=== PATIENT | female | born 1975 | race Caucasian/White ===

== ENCOUNTER 2019-08-31 16:37 | Outpatient (CLI) | payer OTHER, SELFPAY ==
[2019-08-31 16:55] LABS: Basophils Absolute Auto 0.04 K/mm3 (0.00-0.10); Basophils Percent Auto 0.5 % (0.0-1.0); Eosinophils Absolute Auto 0.03 K/mm3 (0.02-0.50); Eosinophils Percent Auto 0.3 % (1.0-6.0); Hematocrit 40.9 % (35.0-49.0); Hemoglobin 13.5 g/dL (12.0-15.0); Immature Granulocyte Absolute 0.02 K/mm3 (0.00-0.00); Immature Granulocyte Percent A 0.2 % (0.0-0.0); Lymphocytes Absolute Auto 3.19 K/mm3 (1.10-4.50); Lymphocytes Percent Auto 36.1 % (18.0-42.0); Mean Corpuscular Hemoglobin 27.3 pg (27.0-31.0); Mean Corpuscular Volume 82.8 fL (78.0-102.0); Mean Platelet Volume 9.4 fl (9.2-11.8); Monocytes Absolute Auto 0.55 K/mm3 (0.10-0.90); Monocytes Percent Auto 6.2 % (2.0-11.0); Neutrophils Percent Auto 56.7 % (50.0-70.0); Platelet Count Result 311 K/mm3 (150-420); Red Blood Count 4.94 M/mm3 (4.20-5.40); Red Cell Distribution Width 13.8 % (11.6-14.4); White Blood Count 8.8 K/mm3 (4.8-10.8)
[2019-08-31 16:59] LABS: Appearance Urine Clear (Clear); Bilirubin Urine Negative (Negative); Color Urine Yellow (Yellow); Glucose Urine UA Negative (Negative); Ketones Urine Negative (Negative); Leukocyte Esterase Ur 1+ (Negative); Nitrate Urine Negative (Negative); Protein Urine Negative (Negative); Urobilinogen Urine 0.2 mg/dL (0.2-1.0)
[2019-08-31 17:11] LABS: Add Urine Microscopic? YES; Bacteria Urine Trace /hpf; Blood Urine Trace (Negative); Mucus Urine Rare /lpf; Squamous Epithelial Cell Urine Few /hpf (Few)
[2019-08-31 17:23] LABS: Alanine Aminotransferase 24 U/L (14-59); Albumin Level 4.1 g/dL (3.4-5.0); Alkaline Phosphatase 73 U/L (46-116); Amylase 30 U/L (25-115); Anion Gap 14.1 mmol/L (7-16); Aspartate Amino Transferase 22 U/L (15-37); Bilirubin,Total 0.3 mg/dL (0.00-1.00); Blood Urea Nitrogen 16 mg/dL (7-18); Calcium 8.9 mg/dL (8.5-10.1); Carbon Dioxide 28 mmol/L (21-32); Chloride 102 mmol/L (98-108); Estimated Glomerular Filt Rate > 60; Glucose 91 mg/dL (70-99); Lipase 92 U/L (73-393); Osmolality Calculated 291 mOsm/kg (285-295); Potassium 4.1 mmol/L (3.5-5.1); Sodium 140 mmol/L (136-145); Total Protein 9.6 g/dL (6.4-8.2)
== END 2019-08-31 16:38 | disposition home or self-care (01) ==
LOC: CHSLAB 16:40
PROVIDERS: PCP Family Medicine; Visit Provider Family Medicine
DX: R19.7 Diarrhea, unspecified (principal); R10.13 Epigastric pain
CPT/HCPCS: 36415; 80053; 81001; 82150; 83690; 85025

== ENCOUNTER 2019-10-27 14:49 | Outpatient (CLI) | payer OTHER, SELFPAY ==
--- NOTE | ~2019-10-27 | XR_ITS ---
XR foot LT min 3V 10/27/2019 15:13 Indication: Left foot pain, bruising and swelling Procedure: 4 views left foot Comparison: Comparison to multiple prior studies sequentially, with oldest reviewed study dated 08/2015. Findings: There is moderate osteoarthritis of the midfoot. There are degenerative calcaneal enthesoph ytes. There are degenerative changes of the tibiotalar joint. No acute fracture or traumatic malalign ment. No focal soft tissue abnormality. No foreign bodies. No erosive changes. Impression: 1: Moderate osteoarthritis of the left midfoot, most advanced at the talonavicular joint. 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 Impression: 1: Moderate osteoarthritis of the left midfoot, most advanced at the talonavicu lar joint.
== END 2019-10-27 14:50 | disposition home or self-care (01) ==
LOC: CHSIMG 14:51
PROVIDERS: PCP Family Medicine; Visit Provider Family Medicine
DX: M79.672 Pain in left foot (principal)
CPT/HCPCS: 73630

== ENCOUNTER 2019-12-20 00:42 | Outpatient (CLI) | payer OTHER, SELFPAY ==
[2019-12-20 18:39] LABS: SARS-CoV-2 RNA PCR Negative
== END 2019-12-20 00:43 | disposition home or self-care (01) ==
LOC: ANHCOVIDDT 00:42
PROVIDERS: PCP Family Medicine; Visit Provider Student in an Organized Health Care Education/Training Program
DX: Z01.812 Encounter for preprocedural laboratory examination (principal); Z20.828 Contact with and (suspected) exposure to other viral communicable diseases
CPT/HCPCS: 87635; C9803; U0003

== ENCOUNTER 2019-12-20 08:29 | Outpatient (CLI) | payer OTHER, SELFPAY ==
[2019-12-20 09:04] LABS: Hematocrit 32.4 % (37.0-47.0); Hemoglobin 10.6 g/dL (12.0-15.0); Mean Corpuscular HGB Conc 32.7 g/dl (32-36); Mean Corpuscular Hemoglobin 28.3 pg (26-34); Mean Corpuscular Volume 86.4 fl (80-100); Mean Platelet Volume 9.8 fl (7.4-10.4); Platelet Count Result 244 k/mm3 (150-375); Red Blood Count 3.75 M/mm3 (4.2-5.4); Red Cell Distribution Width 13.5 % (11.5-14.5); White Blood Count 7.3 K/mm3 (4.5-10.0)
== END 2019-12-20 08:30 | disposition home or self-care (01) ==
PROVIDERS: PCP Family Medicine; Visit Provider Student in an Organized Health Care Education/Training Program
DX: R10.2 Pelvic and perineal pain (principal)
CPT/HCPCS: 36415; 85027; 86850; 86900; 86901

== ENCOUNTER 2019-12-22 16:32 | Observation (INO) | payer OTHER, SELFPAY ==
[2019-08-04 12:40] VITALS: BMI 48.1
[2019-12-15 15:07] VITALS: BMI 49.6
[2019-12-22] VITALS (16 sets, daily range): BP systolic 110–145; BP diastolic 58–90; PULSE 58–90; RESP 12–20; TEMP 36.3–36.7; O2SAT 93–100
--- NOTE | 2019-12-22 07:43 | PM.IMHP ---
H&P: HPI History of Present Illness Chief complaint: Excessive bleeding, pelvic pain Narrative: Deanna Cardoza is a 44 year old female who presents with AUB and pelvic pain. Pt reports irregular bleeding for the past year or so. She reports heavy menses with passing of large clots. She also reports a 9 out of 10 pain during her menses. pt has undergone hysteroscopy and D&C in the past without improvement of her symptoms. Pt has pelvic US after presenting to the hospital for pain on 07/15/19. US showed a [id number] uterus with 7mm endometrial stripe. pt requested definitive management of her bleeding and pain via hysterectomy. Review of Systems Cardiovascular: Cardiovascular: Denies chest pain, Denies leg edema, Denies palpitations, Denies dyspnea and Denies dyspnea on exertion Respiratory: Respiratory: Denies cough, Denies dyspnea and Denies dyspnea on exertion Gastrointestinal: Gastrointestinal: Denies abdominal pain, Denies constipation, Denies diarrhea, Denies nausea and Denies vomiting Genitourinary: Genitourinary: Denies hematuria, Denies urinary frequency, Denies dysuria, Denies pelvic pain, Denies urinary incontinence and Denies vaginal discharge Neurologic: Reports system reviewed and no additional complaints, except as documented Psychiatric: Psychiatric: Reports no additional psychiatric complaints Endocrine: Endocrine: Denies palpitations PMFSH Past Medical History Medical History (Updated 12/22/19 @ 07:47 by Jordin Haley MD) Chronic low back pain Meds Home Medications and Allergies Home Medications Medication Instructions Recorded Confirmed Type fentanyl 1 patch TRANSDERMAL Q72H 05/29/19 12/15/19 History hydrocodone-acetaminophen [[place]] 1 tablet PO Q4-6H PRN 05/29/19 12/15/19 History carisoprodol 350 mg PO TID 08/04/19 12/15/19 History gabapentin 600 mg PO TID 08/04/19 12/15/19 History ibuprofen 800 mg PO TID PRN 12/15/19 12/15/19 History Allergies Allergy/AdvReac Type Severity Reaction Status Date / Time No Known Allergies Allergy Mild Unverified 12/15/19 14:55 Exam Const: General: no acute distress Eyes: EOM: EOMs intact bilaterally Neck: Neck: supple Thyroid: thyroid normal Chest: Breast/axilla inspection: normal inspection of the breasts Breast/axilla palpation: normal palpation of the breasts, normal palpation of the axillae and no axillary lymphadenopathy Resp: Effort & Inspection: normal respiratory effort Auscultation: clear to auscultation bilaterally Cardio: Rate: regular rate Rhythm: regular rhythm GI: Inspection: non-distended GI Palp: Yes Soft to palpation, No Tenderness to palpation present (GI) and No Guarding due to palpation present (GI) Auscultation: normal bowel sounds : General: No bladder normal to palpation External Female Exam: normal external appearance Speculum Exam - Vagina: normal vaginal discharge and No vaginal bleeding Speculum Exam - Cervix: nontender Bimanual exam- vagina & uterus: No bladder normal to palpation and No Cervical tenderness present OB/external & speculum: No vaginal bleeding Skin: General skin exam: normal color and no rashes or lesions noted Neuro: Cognition (Neuro): normal cognition Speech: normal speech Extrem: General: normal to inspection and no edema Psych: Mental Status: mental status grossly normal Affect: normal affect Assessment and Plan Assessment and plan (1) Abnormal uterine bleeding (AUB): Code(s): N93.9 - Abnormal uterine and vaginal bleeding, unspecified Status: Acute Assessment and Plan: pt with over a year of AUB non responsive to D&C US shows 8x4x6 cm uterus with 7mm stripe EMB scant cervical tissue pt desires definitive managment via hysterectomy plan for robotic TLH/BS (2) Pelvic pain: Code(s): R10.2 - Pelvic and perineal pain Status: Acute
[2019-12-22] MEDS: LACTATED RINGERS 1,000 ML 30 ML IV CONT ×3 (10:45→15:17)
--- NOTE | 2019-12-22 10:49 | WPDANESEPPF ---
Anes - Initial Pre Proc Eval Procedure: Operation Date: 12/22/19 12:00 Proposed Procedures p Robotic Assisted Total Vaginal Hysterectomy, Bilateral Salpingectomy - Jordin Haley MD Date/Time: 12/22/19 10:49 Surgeon: Jordin Haley MD Pre Op Diagnosis: Excessive bleeding, pelvic pain Patient Data Age: 44 Gender: F Height: 5 ft 5 in Weight: 135.17 kg Allergies Allergy/AdvReac Type Severity Reaction Status Date / Time No Known Allergies Allergy Mild Unverified 12/22/19 10:33 Home Medications Medication Instructions Recorded Confirmed Type fentanyl 1 patch TRANSDERMAL Q72H 05/29/19 12/22/19 History hydrocodone-acetaminophen [[place]] 1 tablet PO Q4-6H PRN 05/29/19 12/22/19 History carisoprodol 350 mg PO TID 08/04/19 12/22/19 History gabapentin 600 mg PO TID 08/04/19 12/22/19 History ibuprofen 800 mg PO TID PRN 12/15/19 12/22/19 History Patient hx anesthesia problems: none Family hx anesthesia problems: none [facility] Past Medical History Medical History Chronic low back pain Anes - Eval Final PreProcedure Day of Procedure 12/22/19 10:49 Patient weight: morbidly obese Heart: regular rate and rhythm Lungs: clear to auscultation Airway: Mallampati scale class II Neurological: alert and oriented Last oral intake: >/= 8 hours ASA classification: III Emergent: no Anesthetic plan: proceed Anesthesia type and monitoring: general ETT and standard monitoring Informed Consent: The patient's anesthetic plan and its attendant risks and benefits were discussed with the patient/family/POA. Questions were solicited and answers provided to the satisfaction of the patient/family/POA.
[2019-12-22] MEDS: SCOPOLAMINE 1.5 MG PATCH TRANSDERM (11:55)
[2019-12-22] MEDS: ceFAZolin 3 GM/D5W 100 ML 100 ML IVPB (12:25)
[2019-12-22] MEDS: LIDO 1%/EPINEPHRINE 1:100,000 20 ML VIAL 30 ML INFILTRATE (13:32)
--- NOTE | 2019-12-22 14:58 | PM.PROC ---
Procedure Note - Detailed Date of procedure: 12/22/19 Pre-op diagnosis: Excessive bleeding, pelvic pain Post-op diagnosis: same Procedure performed: Robotic assisted total laparoscopic hysterectomy bilateral salpingectomy lysis of adhesions (30 min) Description of procedure: PROCEDURE IN DETAIL: After the patient was appropriately consented she was taken to the operating room where she was transferred to the table in a dorsal supine position. General anesthesia was then induced with endotracheal intubation. The patient was transferred to a dorsal lithotomy position using adjustable yellow-fin stirrups. Her position was adjusted for appropriate support of her lower back and lower extremities. The patient was prepped and draped. A transurethral carrion catheter was place. The cervix was sequentially dilated and a FITZ uterine manipulator placed in typical fashion about a 3.5 cm GIORGIO ring. Gloves were changed. After confirmation of a functioning orogastric tube, lidocaine was injected at Thompson's point in the LUQ and a 5mm incision was made. A 5mm Optiview trocar was then inserted into the abdominal cavity under direct visualization and done so without complication. The abdomen was then insufflated with approximately 2-3L of CO2 establishing a pneumoperitoneum and the patient was placed in Trendelenburg position. Just above the umbilicus in the midline, a 10mm incision made after injection of lidocaine and a 8mm bladeless trocar advanced into the abdominal cavity under direct visualization without incident. We subsequently placed two robotic ports in a similar fashion, one in the left mid-quadrant and one in the right, 10cm lateral to the midline port. On examination of the pelvis, there was a large amount of midline omental adhesions to the anterior abdominal wall. These adhesions were taken down sharply with laparoscopic scissors. The extent of lysis of adhesions lasted 30 min. The robot was then docked. The Left fallopian tube was identified out to the fimbrae. The fallopian tube was then coagulated and ligated along the inferior mesosalpinx toward the uterus. The utero-ovarian ligament was identified and ligated. The Left round ligament was divided and the posterior aspect of the broad ligament was then skeletonized down to the level of the internal cervical os, mobilizing the ureter laterally. The bladder flap was then created sharply. The ipsilateral uterine artery was skeletonized, bipolar cauterized and transected. A similar procedure was performed on the contralateral side, developing the pelvic spaces, coagulating and dividing the IP away from the ureter, completing the bladder flap, and skeletonizing, ligating, and dividing the uterine artery on this side. We ensured the vaginal pneumo-occluder balloon was insufflated and made a circumferential colpotomy using monopolar current. The uterus, cervix, and bilateral tubes were then delivered transvaginally. I then re-approximated the colpotomy with a single interuppted 0-vicryl at the left apex and running #1 PDO barbed suture in 2 layers. Following this dissection, the abdomen and pelvis were copiously irrigated and all surgical sites found to be hemostatic. Skin sites were reapproximated with 4-0 Vicryl in a subcuticular fashion. Steri-Strips were placed. The patient tolerated the procedure well. Sponge, needle and instrument counts were correct x 2 and the patient was taken to recovery in stable condition. Ancef was given for antimicrobial prophylaxis. The patient had SCD's on for VTE prophylaxis during the entire procedure. Anesthesia: GETA Surgeon: Jordin Haley MD Estimated blood loss (mL): 150 IV fluids (mL): 1,600 Urine output (mL): 50 Drains: No Packing: No Pathology: yes (uterus, cervix, bilateral fallopian tubes, bilateral ovaries ) Complications: No immediate complications Condition: stable Disposition: PACU Findings: midline omental adhesions to the anterior abdominal wall.
[2019-12-22] MEDS: HYDROMORPHONE HCL 1 MG/ML INJ IV PUSH ×5 (15:00→15:34)
--- NOTE | 2019-12-22 15:34 | SUR.PHASEI ---
1525 - family updated on pt's status
--- NOTE | 2019-12-22 15:57 | SUR.PHASEI ---
1557 - dr. honeycutt notified of need to call pt's and for possible stronger pain medication when on floor
[2019-12-22] MEDS: MEPERIDINE HCL INJ 50 MG/ML AMPUL IV PUSH (16:36)
--- NOTE | 2019-12-22 16:37 | PC.NURSE ---
This patient, Deanna Cardoza, was received from PACU per bed to room 289. Patient/family oriented to unit policies and routines
--- NOTE | 2019-12-22 16:39 | SUR.PHASEI ---
1546 - dr. moses called and orders received for pain control
[2019-12-22] MEDS: DEXTROSE 5%/LACTATED RINGERS 1,000 ML 125 ML IV CONT (17:11)
[2019-12-22] MEDS: MORPHINE SULFATE 2 MG/ML INJ IV PUSH ×2 (17:27→21:38)
[2019-12-22] MEDS: KETOROLAC 30 MG/ML VIAL (*BKC) IV PUSH (19:11)
[2019-12-22] MEDS: GABAPENTIN 300 MG CAPSULE 600 MG PO (21:38)
[2019-12-23] VITALS: BP 129/56; PULSE 102; RESP 16; TEMP 37.2; O2SAT 98
[2019-12-23] MEDS: KETOROLAC 30 MG/ML VIAL (*BKC) IV PUSH (00:27)
[2019-12-23] MEDS: SIMETHICONE 80 MG TAB.CHEW PO (00:30)
[2019-12-23 04:00] VITALS: BP 106/50; PULSE 92; RESP 16; TEMP 37.8; O2SAT 98
[2019-12-23 05:32] LABS: Basophils Percent Auto 0.2 % (0.2-1.2); Hematocrit 31.5 % (37.0-47.0); Hemoglobin 10.2 g/dL (12.0-15.0); Immature Granulocyte Absolute 0.03 K/mm3 (0.00-0.031); Immature Granulocyte Percent A 0.3 % (0-0.5); Lymphocytes Percent Auto 25.6 % (18.3-44.2); Mean Corpuscular HGB Conc 32.4 g/dl (32-36); Mean Corpuscular Hemoglobin 27.8 pg (26-34); Mean Corpuscular Volume 85.8 fl (80-100); Mean Platelet Volume 10.1 fl (7.4-10.4); Monocytes Absolute Auto 0.7 K/mm3 (0.1-0.6); Monocytes Percent Auto 6.5 % (2.6-8.5); Neutrophils Absolute Auto 6.8 K/mm3 (1.3-6.7); Neutrophils Percent Auto 67.4 % (45.5-73.1); Platelet Count Result 246 k/mm3 (150-375); Red Blood Count 3.67 M/mm3 (4.2-5.4); Red Cell Distribution Width 13.2 % (11.5-14.5); White Blood Count 10.1 K/mm3 (4.5-10.0)
[2019-12-23 05:47] LABS: Blood Urea Nitrogen 9 mg/dL (7-17); Calcium 8.4 mg/dL (8.4-10.2); Carbon Dioxide 30 mmol/L (22-30); Chloride 101 mmol/L (98-107); Estimated CRCL calculation 167 ml/min; Estimated Glomerular Filt Rate > 60; Glucose 93 mg/dL (65-105); Potassium 3.7 mmol/L (3.4-5.0); Sodium 136 mmol/L (137-145)
[2019-12-23] MEDS: GABAPENTIN 300 MG CAPSULE 600 MG PO (07:23)
[2019-12-23] MEDS: IBUPROFEN 600 MG TABLET PO (07:31)
[2019-12-23 08:25] VITALS: BP 91/43; PULSE 87; RESP 18; TEMP 37.3; O2SAT 95
--- NOTE | 2019-12-23 11:21 | PM.DS ---
DS: Admitting Diagnosis Admitting Diagnosis Admitting Diagnosis: Pelvic and perineal pain DS: Summary Hospital Course Hospital Course: Deanna Cardoza was admitted after robotic assisted total laparoscopic hysterectomy and bilateral salpingectomy for abnormal uterine bleeding and pelvic pain. The above procedure was performed with no complications. She is doing well post op. She states her pain is well controlled with PO medications. She reports minimal bleeding. She is ambulating up to the chair. Her carrion catheter was removed and she is voiding spontaneously. She is tolerating PO without N/V. She reports passing flatus. Status at Discharge Overall status at discharge: patient is progressing back to baseline Time Spent with Patient Time attestation: Total time spent providing and/or coordinating discharge services: Time spent: Less than 30 minutes Exam Const: General: comfortable and no acute distress Limitations: no limitations Resp: Effort & Inspection: normal respiratory effort Auscultation: clear to auscultation bilaterally Cardio: Rate: regular rate Rhythm: regular rhythm GI: Inspection: non-distended GI Palp: Yes Soft to palpation, Yes Tenderness to palpation present (GI) (milder tenderness to deep palpation) and No Guarding due to palpation present (GI) Auscultation: normal bowel sounds Other: incisions C/D/I covered with dermabond Urinary Catheter: Urinary Catheter: urine clear Skin: General skin exam: normal color Extrem: General: normal to inspection Psych: Mental Status: mental status grossly normal Affect: normal affect DS: Data Data Completed and Pending Pending studies at discharge: Pending at discharge 12/22/19 14:24 Surgical [PTH] Routine Labs on day of discharge: Labs from last 24 hours 12/23/19 12/23/19 03:56 03:56 WBC 10.1 H RBC 3.67 L Hgb 10.2 L Hct 31.5 L MCV 85.8 MCH 27.8 MCHC 32.4 RDW 13.2 Plt Count 246 MPV 10.1 Immature Gran % (Auto) 0.3 Neut % (Auto) 67.4 Lymph % (Auto) 25.6 [place] % (Auto) 6.5 Eos % (Auto) 0.0 Baso % (Auto) 0.2 Lymph # (Auto) 2.60 [place] # (Auto) 0.7 H Eos # (Auto) 0.0 Baso # (Auto) 0.0 Abs Immat Gran (auto) 0.03 Absolute Neuts (auto) 6.8 H Absolute Nucleated RBC 0.0 Nucleated RBC % 0.0 Sodium 136 L Potassium 3.7 Chloride 101 Carbon Dioxide 30 BUN 9 Creatinine 0.50 L Estim Creat Clear Calc 167 Estimated GFR > 60 Glucose 93 Calcium 8.4 Discharge Plan Discharge Discharging Clinician: Jordin Haley Patient Disposition: Home, Self-Care Activity: as tolerated, follow weight bearing status and pelvic rest Diet: regular Patient Instructions: Laparoscopic Hysterectomy (DC) Follow-up/Referrals: Jordin Haley MD [Physician] - Discharge Medications: New oxycodone-acetaminophen [Perc[place]] 5-325 mg tablet 1 tablet PO Q6H PRN (Reason: pain) Qty: 30 RF: 0 Continued fentanyl 50 mcg/hr Patch 72 Hour 1 patch TRANSDERMAL Q72H RF: 0 hydrocodone-acetaminophen [[place]] 10-325 mg Tablet 1 tablet PO Q4-6H PRN (Reason: Pain) RF: 0 carisoprodol 350 mg tablet 350 mg PO TID RF: 0 gabapentin 300 mg Capsule 600 mg PO TID RF: 0 ibuprofen 800 mg Tablet 800 mg PO TID PRN (Reason: Pain) RF: 0 Date of admission: 12/22/19 16:32 Primary Care Provider: Luis Wise Admitting Provider: Jordin Haley Attending physician on admission: Jordin Haley
== END 2019-12-23 13:51 | disposition home or self-care (01) ==
LOC: ANHOB2 17:07
PROVIDERS: Admitting Provider Student in an Organized Health Care Education/Training Program; PCP Family Medicine; Visit Provider Student in an Organized Health Care Education/Training Program
PROC: (CPT 58552; principal; 2019-12-22 12:00)
DX: N80.0 Endometriosis of uterus (principal); N93.9 Abnormal uterine and vaginal bleeding, unspecified; R10.2 Pelvic and perineal pain; E66.01 Morbid (severe) obesity due to excess calories; Z68.42 Body mass index [BMI] 45.0-49.9, adult
CPT/HCPCS: 58552; S2900; 36415; 80048; 85025; 88307; A9270; G0378; G0379; J0131; J0330; J0690; J1100; J1170; J1885; J2175; J2250; J2270; J2405; J2704; J3010; J3360; J7030; J7120; J7121

== ENCOUNTER 2020-03-12 13:54 | Outpatient (CLI) | payer OTHER, SELFPAY ==
--- NOTE | ~2020-03-12 | XR_ITS ---
EXAMINATION: XR lumbar spine 2-3V DATE: 03/12/2020 14:42 INDICATION: Spinal stenosis. TECHNIQUE: 3 views of lumbar spine were obtained. COMPARISON: Lumbar spine radiographs 07/21/2017 FINDINGS: There is 6 degrees dextrocurvature of lumbar spine. Vertebral body heights are normal. Ther e is mildly decreased disc height at L3-L4 and moderately decreased disc height at L4-L5 and L5-S1. T here are endplate osteophytes at most levels. There is multilevel mild facet joint osteoarthritis. Th ere is a phlebolith in left pelvis. IMPRESSION: 1. Moderate lumbar spondylosis. Reviewed, dictated and finalized at location B.
== END 2020-03-12 13:55 | disposition home or self-care (01) ==
LOC: CHSIMG 13:56
PROVIDERS: PCP Family Medicine; Visit Provider Family Medicine
DX: M48.061 Spinal stenosis, lumbar region without neurogenic claudication (principal)
CPT/HCPCS: 72100

== ENCOUNTER 2020-06-01 11:34 | Outpatient (CLI) | payer OTHER, SELFPAY ==
[2020-06-01 13:25] LABS: SARS-CoV-2 Ag Negative (Negative)
== END 2020-06-01 11:35 | disposition home or self-care (01) ==
LOC: CHSLAB 11:38
PROVIDERS: PCP Family Medicine; Visit Provider Family Medicine
DX: Z20.828 Contact with and (suspected) exposure to other viral communicable diseases (principal)
CPT/HCPCS: 87426

== ENCOUNTER 2020-09-13 16:27 | Outpatient (CLI) | payer OTHER, SELFPAY ==
--- NOTE | ~2020-09-13 | XR_ITS ---
EXAMINATION: XR ankle LT min 3V DATE: 09/13/2020 17:00 INDICATION: Left ankle pain and swelling. TECHNIQUE: 4 views of left ankle were obtained. COMPARISON: Left foot radiographs 10/27/19 FINDINGS: Bone alignment is normal. No fracture. There is mild osteoarthritis of the ankle joint and some of the midfoot joints. There are enthesophytes at the posterior and plantar aspects of calcaneal tuberosity. There is ankle soft tissue swelling. IMPRESSION: 1. Mild polyarticular osteoarthritis. 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
== END 2020-09-13 16:28 | disposition home or self-care (01) ==
LOC: CHSLAB 16:28
PROVIDERS: PCP Family Medicine; Visit Provider Family Medicine
DX: M25.572 Pain in left ankle and joints of left foot (principal)
CPT/HCPCS: 73610

== ENCOUNTER 2020-09-14 13:50 | Outpatient (CLI) | payer OTHER, SELFPAY ==
[2020-09-15 19:43] LABS: SARS-CoV-2 RNA PCR Negative
== END 2020-09-14 13:51 | disposition home or self-care (01) ==
LOC: CHSLAB 13:51
PROVIDERS: PCP Family Medicine; Visit Provider Family Medicine
DX: Z20.822 Contact with and (suspected) exposure to COVID-19 (principal)
CPT/HCPCS: C9803; U0003; U0005

== ENCOUNTER 2020-11-07 13:03 | Outpatient (CLI) | payer OTHER, SELFPAY ==
--- NOTE | ~2020-11-07 | XR_ITS ---
EXAMINATION: XR knee LT 3V DATE: 11/07/2020 13:39 INDICATION: Left knee pain. TECHNIQUE: 3 views of left knee were obtained. COMPARISON: None. FINDINGS: Bone alignment is normal. No fracture. There is mild osteoarthritis of medial and patellofe moral compartments characterized by tiny marginal osteophytes. No knee joint effusion. IMPRESSION: 1. Mild left knee osteoarthritis. Reviewed, dictated and finalized at location B.
== END 2020-11-07 13:04 | disposition home or self-care (01) ==
LOC: CHSLAB 13:04
PROVIDERS: PCP Family Medicine; Visit Provider Family Medicine
DX: M25.562 Pain in left knee (principal)
CPT/HCPCS: 73562

== ENCOUNTER 2020-11-13 10:04 | Outpatient (RCR) | payer OTHER, SELFPAY ==
--- NOTE | 2020-11-13 11:24 | PTOPEVAL ---
Thank you for referring Deanna Cardoza to [facility].? The patient is scheduled to be seen for therapy? ____x/week for ___ weeks. Please review, sign, date and return this plan of care TIFFANY. I agree with and certify that the following plan of care is medically necessary. Referring Physician Date Admitting Provider: Attending Provider: Luis Wise MD Referring Provider: *PT Outpatient Evaluation Start: 09/25/20 07:58 Freq: Status: Active Protocol: Document 11/13/20 10:09 ACR (Rec: 11/13/20 11:24 ACR [id number]) Therapy Assessment Status Assessment Status Assessment Status Evaluation Outpatient Past Medical History Neurological History Hx Migraine Yes Cardiovascular History Hx Cardiac Disorders No Significant History Respiratory History Hx Bronchitis Yes Hx Pneumonia Yes Gastrointestinal History Hx Cholecystectomy Yes Hx Irritable Bowel Yes Genitourinary History Hx Genitourinary Disorders No Significant History Musculoskeletal History Hx Arthritis Yes Hx Back Injury Yes: 4 HERNIATED DISCS, 1 BULGING DISC Hx Back Pain Yes Hx Degenerative Disk Disease Yes Hematological History Hx Anemia Yes: RESOLVED Hx Blood Transfusions Yes: 1998- AFTER DELIVERY Endocrine History Hx Endocrine Disorders No Significant History HEENT History Hx Dental Problems Yes: BROKEN TOOTH Integumentary History Hx Eczema Yes Reproductive History Hx Abnormal Uterine Bleeding Yes Hx Tubal Ligation Yes Hx Other Reproductive Disorders Yes: PELVIC PAIN Psychosocial History Hx Psychiatric Disorders No Significant History Pain History Has Past Pain Affected Your Daily Life Yes: BACK PAIN History of Long-Term Prescription Pain Yes Medication Use (Opiates) Anesthesia History Hx Anesthesia Reactions No Significant History Evaluation Information Problem Diagnosis L knee pain, L ankle pain Onset 09/15/20 Subjective Information Patient states 2 months ago Query Text:As Reported By Patient/ 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 About a month ago she felt a big knot behind her knee and now she has a burning and pulling sensation. Patient states that she has difficulty navigating the stairs and doing pretty much
--- NOTE | 2020-12-26 15:55 | PTOPEVAL ---
Thank you for referring Deanna Cardoza to [facility].? The patient is scheduled to be seen for therapy? __2__x/week for 6 visits. Please review, sign, date and return this plan of care TIFFANY. I agree with and certify that the following plan of care is medically necessary. Referring Physician Date Admitting Provider: Attending Provider: Luis Wise MD Referring Provider: *PT Outpatient Evaluation Start: 09/25/20 07:58 Freq: Status: Active Protocol: Document 12/26/20 10:30 KALEN (Rec: 12/26/20 15:54 KALEN [id number]) Therapy Assessment Status Assessment Status Assessment Status Re-evaluation Outpatient Past Medical History Neurological History Hx Migraine Yes Cardiovascular History Hx Cardiac Disorders No Significant History Respiratory History Hx Bronchitis Yes Hx Pneumonia Yes Gastrointestinal History Hx Cholecystectomy Yes Hx Irritable Bowel Yes Genitourinary History Hx Genitourinary Disorders No Significant History Musculoskeletal History Hx Arthritis Yes Hx Back Injury Yes: 4 HERNIATED DISCS, 1 BULGING DISC Hx Back Pain Yes Hx Degenerative Disk Disease Yes Hematological History Hx Anemia Yes: RESOLVED Hx Blood Transfusions Yes: 1998- AFTER DELIVERY Endocrine History Hx Endocrine Disorders No Significant History HEENT History Hx Dental Problems Yes: BROKEN TOOTH Integumentary History Hx Eczema Yes Reproductive History Hx Abnormal Uterine Bleeding Yes Hx Tubal Ligation Yes Hx Other Reproductive Disorders Yes: PELVIC PAIN Psychosocial History Hx Psychiatric Disorders No Significant History Pain History Has Past Pain Affected Your Daily Life Yes: BACK PAIN History of Long-Term Prescription Pain Yes Medication Use (Opiates) Anesthesia History Hx Anesthesia Reactions No Significant History Evaluation Information Problem Diagnosis right knee pain, left ankle pain Onset 12/07/20 Subjective Information Pt. reports that her left Query Text:As Reported By Patient/ ankle and left knee are 85% Family improved. She states that in the recent 2 weeks she began to notice an increase in her right knee pain. she reports she went to the doctor and had xray of the right knee. She states that pain is in the back and front of the right
== END 2021-01-17 10:27 | disposition home or self-care (01) ==
LOC: CHSPT 10:04
PROVIDERS: PCP Family Medicine; Visit Provider Family Medicine
DX: M25.572 Pain in left ankle and joints of left foot (principal); M25.562 Pain in left knee; M25.561 Pain in right knee
CPT/HCPCS: 97110; 97161; 97530

== ENCOUNTER 2020-12-03 14:55 | Outpatient (CLI) | payer OTHER, SELFPAY ==
--- NOTE | ~2020-12-03 | XR_ITS ---
XR knee RT 3V DATE: 12/03/2020 15:15 INDICATION: Lateral right knee pain following fall 5 days ago TECHNIQUE: 3 views COMPARISON: None FINDINGS: Suprapatellar knee joint effusion is suggested. There is minimal periarticular spurring of the patella consistent with osteoarthritis. Joint spaces are preserved. No fracture, dislocation, periosteal reaction or bone destruction is evident. IMPRESSION: Suggestion of suprapatellar knee joint effusion Reviewed, dictated and finalized at location A.
== END 2020-12-03 14:56 | disposition home or self-care (01) ==
LOC: CHSIMG 14:57
PROVIDERS: PCP Family Medicine; Visit Provider Family Medicine
DX: M25.561 Pain in right knee (principal)
CPT/HCPCS: 73562

== ENCOUNTER 2020-12-14 15:03 | Outpatient (CLI) | payer OTHER, SELFPAY ==
[2020-12-14 15:20] LABS: Basophils Absolute Auto 0.05 K/mm3 (0.00-0.10); Basophils Percent Auto 0.7 % (0.0-1.0); Eosinophils Absolute Auto 0.12 K/mm3 (0.02-0.50); Eosinophils Percent Auto 1.6 % (1.0-6.0); Hematocrit 35.5 % (35.0-49.0); Hemoglobin 11.5 g/dL (12.0-15.0); Immature Granulocyte Absolute 0.04 K/mm3 (0.00-0.00); Immature Granulocyte Percent A 0.5 % (0.0-0.0); Lymphocytes Absolute Auto 3.32 K/mm3 (1.10-4.50); Lymphocytes Percent Auto 43.6 % (18.0-42.0); Mean Corpuscular HGB Conc 32.4 g/dL (32.0-36.0); Mean Corpuscular Hemoglobin 29.2 pg (27.0-31.0); Mean Corpuscular Volume 90.1 fL (78.0-102.0); Mean Platelet Volume 9.1 fl (9.2-11.8); Monocytes Absolute Auto 0.53 K/mm3 (0.10-0.90); Neutrophils Absolute Auto 3.6 K/mm3 (1.7-7.2); Neutrophils Percent Auto 46.6 % (50.0-70.0); Platelet Count Result 243 K/mm3 (150-420); Red Blood Count 3.94 M/mm3 (4.20-5.40); Red Cell Distribution Width 13.8 % (11.6-14.4); White Blood Count 7.6 K/mm3 (4.8-10.8)
[2020-12-14 15:27] LABS: Add Urine Microscopic? NO; Appearance Urine Clear (Clear); Bilirubin Urine Negative (Negative); Blood Urine Negative (Negative); Color Urine Yellow (Yellow); Glucose Urine UA Negative (Negative); Ketones Urine Negative (Negative); Leukocyte Esterase Ur Negative LEU/UL (Negative); Nitrate Urine Negative (Negative); Protein Urine Negative (Negative); Specific Grav Ur 1.025 (1.010-1.020); Urobilinogen Urine 0.2 mg/dL (0.2-1.0); pH Urine 6.5 (5.0-8.0)
[2020-12-14 15:47] LABS: Alanine Aminotransferase 20 U/L (14-59); Alkaline Phosphatase 83 U/L (46-116); Anion Gap 2 mmol/L (8-16); Aspartate Amino Transferase 14 U/L (15-37); Bilirubin,Total 0.2 mg/dL (0.00-1.00); Blood Urea Nitrogen 10 mg/dL (7-18); Calcium 8.5 mg/dL (8.5-10.1); Carbon Dioxide 35 mmol/L (21-32); Chloride 101 mmol/L (98-108); Estimated Glomerular Filt Rate > 60; Glucose 84 mg/dL (70-99); NT Pro B Type Natriuretic Pept 99 pg/mL (0-125); Osmolality Calculated 284 mOsm/kg (285-295); Potassium 4.1 mmol/L (3.5-5.1); Sodium 138 mmol/L (136-145); Thyroid Stimulating Hormone 2.06 uIU/mL (0.36-3.74); Total Protein 7.5 g/dL (6.4-8.2)
[2020-12-14 15:48] LABS: D Dimer 0.77 mg/L (0.19-0.50)
[2020-12-14 16:10] LABS: SARS-CoV-2 RNA PCR Negative (Negative)
== END 2020-12-14 15:04 | disposition home or self-care (01) ==
LOC: CHSLAB 15:06
PROVIDERS: PCP Family Medicine; Visit Provider Family Medicine
DX: R53.83 Other fatigue (principal); M79.606 Pain in leg, unspecified; Z20.822 Contact with and (suspected) exposure to COVID-19
CPT/HCPCS: 36415; 80053; 81003; 83880; 84443; 85025; 85380; 86769; C9803; U0003; U0005

== ENCOUNTER 2020-12-14 18:17 | Emergency (ER) | payer OTHER, SELFPAY ==
[2020-12-14 18:20] VITALS: BP 131/81; PULSE 98; RESP 20; TEMP 36.2; O2SAT 98
[2020-12-14 21:02] VITALS: BP 136/81; PULSE 92; RESP 18; O2SAT 97
--- NOTE | 2020-12-14 23:06 | ED.GENADULT ---
HPI - General Adult General Chief complaint: Recheck/Abnormal Lab/Rx Stated complaint: d-dimer elevated Time Seen by Provider: 12/14/20 22:50 History of Present Illness HPI narrative: Patient is a 45-year-old female who presents ER with reports of abnormal lab work. Patient reports she has been having swelling in her bilateral lower extremities over the last week with some cramping in her left calf. She has noticed that some veins of become a little bit more distended. She discussed this with her primary care physician who ordered an outpatient D-dimer that came back elevated. He told her she should go to the hospital for further evaluation. Patient is having no chest pain or shortness of breath. She reports no recent surgeries, she is not on any control or other oral hormonal drugs. Reports family history of blood clots in her mother and an aunt. Unsure whether there is a familial component to the blood clots. She has no personal history of blood clots. No known trauma but reports she had a fall 3 weeks ago that caused her to have some knee pain and she has been in physical therapy. Related Data Home Medications Medication Instructions Recorded Confirmed fentanyl 1 patch TRANSDERMAL Q72H 05/29/19 12/22/19 hydrocodone-acetaminophen [[place]] 1 tablet PO Q4-6H PRN 05/29/19 12/22/19 carisoprodol 350 mg PO TID 08/04/19 12/22/19 gabapentin 600 mg PO TID 08/04/19 12/22/19 ibuprofen 800 mg PO TID PRN 12/15/19 12/22/19 Allergies Allergy/AdvReac Type Severity Reaction Status Date / Time No Known Allergies Allergy Mild Unverified 12/22/19 10:33 Review of Systems Review of Systems: All systems reviewed & are unremarkable except as noted in HPI and below Constitutional: Constitutional: Denies chills and Denies fever(s) Cardiovascular: Cardiovascular: Denies chest pain and Denies rapid heart rate Respiratory: Respiratory: Denies cough and Denies dyspnea Musculoskeletal: Musculoskeletal: Denies arthralgias, Denies joint swelling and Reports muscle cramps Comments: Lower extremity edema Neurologic: Denies focal weakness and Denies numbness PMF Past Medical History Medical History (Updated 12/14/20 @ 23:11 by Parish Pagan MD) Chronic low back pain Surgical History Surgical History (Updated 12/14/20 @ 23:08 by Parish Pagan MD) History of hysterectomy Exam Narrative: Exam Narrative: GENERAL: Well-appearing, well-nourished, and in no acute distress. HEAD: Normocephalic, atraumatic. CHEST: Clear to auscultation. No respiratory distress. HEART: Regular rate and rhythm. Normal peripheral pulses. ABDOMEN: Soft, nontender, nondistended. EXTREMITIES: Normal range of motion. Trace lower extremity edema. Normal dorsalis pedis and posterior tibial pulses. Mild discomfort with palpation of the left posterior calf proximally. Possible venous congestion medially in the distal thigh there is some verbal discoloration the patient reports is abnormal. SKIN: Warm, dry, no rash. NEURO: No focal deficits. Alert and oriented x3. PSYCH: Normal mood and affect. Course Course Emergency Course: Will give first dose of Lovenox here given elevated D-dimer and reports of lower extremity edema. Patient has been scheduled for an ultrasound first thing tomorrow morning. Results will be sent to her doctor who can contact her further for anticoagulation if needed. Vital Signs Vital signs: Vital Signs Temperature 97.1 F L 12/14/20 18:20 Pulse Rate 98 12/14/20 18:20 Respiratory Rate 20 12/14/20 18:20 Blood Pressure 131/81 12/14/20 18:20 Pulse Oximetry 98 12/14/20 18:20 Temperature 97.1 F L 12/14/20 18:20 Pulse Rate 92 12/14/20 21:02 Respiratory Rate 18 12/14/20 21:02 Blood Pressure 136/81 12/14/20 21:02 Pulse Oximetry 97 12/14/20 21:02 Medical Decision Making Vital Signs Vital Signs: Vital Signs Temperature 97.1 F L 12/14/20 18:20 Pulse Rate 98 12/14/20 18:20 Respira
[2020-12-14] MEDS: ENOXAPARIN 80 MG/0.8 ML SYRINGE SUB-Q (23:23)
[2020-12-14] MEDS: ENOXAPARIN 60 MG/0.6 ML SYRINGE SUB-Q (23:23)
[2020-12-15 00:01] VITALS: BP 123/60; PULSE 81; RESP 18; O2SAT 100
== END 2020-12-14 23:20 | disposition home or self-care (01) ==
PROVIDERS: Emergency Provider Emergency Medicine; PCP Family Medicine
DX: R60.9 Edema, unspecified (principal); G89.29 Other chronic pain; M54.5 Low back pain
CPT/HCPCS: 96372; 99284; J1650

== ENCOUNTER 2020-12-15 07:04 | Outpatient (CLI) | payer OTHER, SELFPAY ==
--- NOTE | ~2020-12-15 | US_ITS ---
EXAMINATION: US venous doppler [facility] DATE: 12/15/2020 07:34 INDICATION: Lower limb edema. TECHNIQUE: Grayscale ultrasound images without and with compression and Doppler ultrasound images of the bilateral lower extremity veins were obtained. COMPARISON: None. FINDINGS: The visualized portions of right common femoral vein, profunda (deep) femoral vein, femoral vein, pop liteal vein, peroneal veins, posterior tibial veins, and greater saphenous vein outflow are patent. T here is a large Juan's cyst. The visualized portions of left common femoral vein, profunda femoral vein, femoral vein, popliteal v ein, posterior tibial veins, and greater saphenous vein outflow are patent. IMPRESSION: 1. No deep venous thrombosis. 2. Large right-sided Juan's cyst. 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
== END 2020-12-15 07:05 | disposition home or self-care (01) ==
LOC: ANHIMG 07:06
PROVIDERS: PCP Family Medicine; Visit Provider Family Medicine
DX: R60.9 Edema, unspecified (principal); M71.21 Synovial cyst of popliteal space [Baker], right knee
CPT/HCPCS: 93970

== ENCOUNTER 2021-02-07 13:21 | Emergency (ER) | payer OTHER, SELFPAY ==
--- NOTE | ~2021-02-07 | CT_ITS ---
EXAMINATION: CT abdomen pelvis w con DATE: 02/07/2021 16:33 INDICATION: Upper abdominal pain and rectal bleeding beginning this morning TECHNIQUE: Computed tomography (CT) of the abdomen and pelvis was performed with 100 cc Omnipaque 350 intravenous contrast. Automated exposure control and iterative reconstruction technique were employe d. Exam dose: 1507.91 mGy-cm total exam DLP. COMPARISON: None. FINDINGS: Normal heart size. No pericardial or pleural effusion. The lung bases are clear. Status post cholecystectomy. No bile duct or pancreatic duct dilatation. No hepatic, splenic, pancrea tic, and adrenal or renal space-occupying mass lesion is detected. No urinary tract calculus or hydroureteronephrosis. Normal caliber of the abdominal aorta. No intraperitoneal or retroperitoneal or pelvic mass lesion or adenopathy or ascites is evident. The urinary bladder appears unremarkable. Status post hysterectomy. Mild colonic diverticulosis; no CT evidence of diverticulitis. No bowel obstruction, bowel wall thick ening, pneumatosis or intraperitoneal free air. Small fat-containing umbilical hernia. Degenerative spurring of the thoracic spine and multilevel degenerative disc disease of the lumbar sp ine, primarily at L3-4 and particularly L4-5 and L5-S1. Bilateral hip osteoarthritis. No suspicious osteolytic or osteoblastic lesions are noted. IMPRESSION: Status post cholecystectomy Status post hysterectomy Mild colonic diverticulosis; no CT evidence of diverticulitis Reviewed, dictated and finalized at [facility]. 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
[2021-02-07 14:51] VITALS: BP 141/89; PULSE 92; RESP 18; TEMP 37.2; O2SAT 99
[2021-02-07 15:50] LABS: Basophils Absolute Auto 0.05 K/mm3 (0.00-0.10); Basophils Percent Auto 0.6 % (0.0-1.0); Eosinophils Absolute Auto 0.09 K/mm3 (0.02-0.50); Eosinophils Percent Auto 1.1 % (1.0-6.0); Hematocrit 37.6 % (35.0-49.0); Hemoglobin 12.3 g/dL (12.0-15.0); Immature Granulocyte Absolute 0.03 K/mm3 (0.00-0.00); Immature Granulocyte Percent A 0.4 % (0.0-0.0); Lymphocytes Absolute Auto 3.29 K/mm3 (1.10-4.50); Lymphocytes Percent Auto 40.9 % (18.0-42.0); Mean Corpuscular HGB Conc 32.7 g/dL (32.0-36.0); Mean Corpuscular Hemoglobin 29.1 pg (27.0-31.0); Mean Corpuscular Volume 89.1 fL (78.0-102.0); Mean Platelet Volume 9.8 fl (9.2-11.8); Monocytes Absolute Auto 0.51 K/mm3 (0.10-0.90); Monocytes Percent Auto 6.3 % (2.0-11.0); Neutrophils Absolute Auto 4.1 K/mm3 (1.7-7.2); Neutrophils Percent Auto 50.7 % (50.0-70.0); Platelet Count Result 243 K/mm3 (150-420); Red Blood Count 4.22 M/mm3 (4.20-5.40); Red Cell Distribution Width 13.2 % (11.6-14.4)
[2021-02-07 15:57] LABS: Add Urine Microscopic? YES; Appearance Urine Sl Cloudy (Clear); Bilirubin Urine Negative (Negative); Blood Urine 2+ (Negative); Color Urine Light Yellow (Yellow); Glucose Urine UA Negative (Negative); Ketones Urine Negative (Negative); Leukocyte Esterase Ur Negative LEU/UL (Negative); Nitrate Urine Negative (Negative); Protein Urine Negative (Negative); Specific Grav Ur >= 1.030 (1.010-1.020); Urobilinogen Urine 0.2 mg/dL (0.2-1.0); pH Urine 5.5 (5.0-8.0)
[2021-02-07] MEDS: SODIUM CHLORIDE 0.9% IV 500 ML 999 ML IV CONT (16:01)
[2021-02-07] MEDS: PANTOPRAZOLE SODIUM IV 40 MG VIAL IV PUSH (16:02)
[2021-02-07] MEDS: ONDANSETRON INJ 4 MG/2 ML VIAL IV PUSH ×2 (16:02→18:12)
[2021-02-07 16:03] LABS: WBC Urine 0-3 /hpf (0-3)
[2021-02-07 16:04] LABS: Bacteria Urine 4+ /hpf; Squamous Epithelial Cell Urine Moderate /hpf (Few)
[2021-02-07 16:05] LABS: Partial Thromboplastin Time 23.4 SEC (23.90-30.70); Prothrombin Time 10.9 Seconds (9.50-12.10)
[2021-02-07 16:06] LABS: Alanine Aminotransferase 21 U/L (14-59); Albumin Level 3.2 g/dL (3.4-5.0); Alkaline Phosphatase 60 U/L (46-116); Anion Gap 8 mmol/L (8-16); Aspartate Amino Transferase 12 U/L (15-37); Bilirubin,Total 0.3 mg/dL (0.00-1.00); Blood Urea Nitrogen 17 mg/dL (7-18); Calcium 8.5 mg/dL (8.5-10.1); Carbon Dioxide 34 mmol/L (21-32); Chloride 102 mmol/L (98-108); Estimated CRCL calculation 131 ml/min; Estimated Glomerular Filt Rate > 60; Glucose 103 mg/dL (70-99); Lipase 43 U/L (73-393); Osmolality Calculated 299 mOsm/kg (285-295); Potassium 3.6 mmol/L (3.5-5.1); Sodium 144 mmol/L (136-145); Total Protein 7.1 g/dL (6.4-8.2)
[2021-02-07 16:11] LABS: Lactic Acid Reflex 1.4 mmol/L (0.4-2.0)
--- NOTE | 2021-02-07 16:51 | ED.ABDPAIN ---
HPI - Abdominal Pain General Chief Complaint: Abdominal Pain Stated Complaint: stomach pain and blood in stool Time Seen by Provider: 02/07/21 14:53 Source: patient and RN notes reviewed Mode of arrival: ambulatory Limitations: no limitations History of Present Illness HPI narrative: Pt has had 3 stools with blood mixed in. MD elicited complaint: abdominal pain Pertinent past history: none Onset (ago): day(s) (1) Pain Consistency: constant Location: epigastric and periumbilical Severity: mild Pain scale (0-10): 3 Quality: cramping and dull Radiation: none Exacerbating factors: nothing Relieving factors: nothing Associated symptoms: denies other symptoms Treatments prior to arrival: NSAIDs Related Data Patient : No Home Medications Medication Instructions Recorded Confirmed fentanyl 1 patch TRANSDERMAL Q72H 05/29/19 02/07/21 hydrocodone-acetaminophen [[place]] 1 tablet PO Q4-6H PRN 05/29/19 02/07/21 gabapentin 600 mg PO TID 08/04/19 02/07/21 ibuprofen 800 mg PO TID PRN 12/15/19 02/07/21 carisoprodol 500 mg PO TID 02/07/21 02/07/21 Allergies Allergy/AdvReac Type Severity Reaction Status Date / Time No Known Allergies Allergy Mild Unverified 12/22/19 10:33 Review of Systems Review of Systems: All systems reviewed & are unremarkable except as noted in HPI and below Constitutional: Constitutional: Reports as per HPI and Reports no additional constitutional complaints Eyes: Eyes: Reports as per HPI and Reports no additional eye complaints ENT: Reports system reviewed and no additional complaints, except as documented and Reports as per HPI Cardiovascular: Cardiovascular: Reports as per HPI and Reports no additional cardiovascular complaints Respiratory: Respiratory: Reports as per HPI and Reports no additional respiratory complaints Gastrointestinal: Gastrointestinal: Reports as per HPI, Reports abdominal pain and Reports nausea Comments: mild rectal bleeding. none acute in the ED. Genitourinary: Genitourinary: Reports no additional female genitourinary complaints and Reports as per HPI Musculoskeletal: Musculoskeletal: Reports no additional musculoskeletal complaints and Reports as per HPI Integumentary/Breasts: Skin/Breast: Reports system reviewed and no additional complaints, except as docu and Reports as per HPI Neurologic: Reports system reviewed and no additional complaints, except as documented and Reports as per HPI Psychiatric: Psychiatric: Reports no additional psychiatric complaints and Reports as per HPI Endocrine: Endocrine: Reports no additional endocrine complaints and Reports as per HPI Hematologic/Lymphatic: Hematologic/Lymphatic: Reports no additional hematologic/lymphatic complaints and Reports as per HPI Allergic/Immunologic: Allergic/Immunologic: Reports no additional allergic/immunologic complaints and Reports as per HPI PMFSH Past Medical History Medical History Chronic low back pain Surgical History Surgical History History of hysterectomy Exam Const: General: no acute distress and alert Orientation/consciousness: patient oriented x3 HENMT: Head: normal to inspection Ears: external ears normal and TM's normal bilaterally General nose exam: Normal external nose present and Normal nares present Mouth: Yes moist mucous membranes Throat: posterior oropharynx normal Eyes: Conjunctivae: conjunctivae normal Pupils: Equal, round and reactive pupils present EOM: EOMs intact bilaterally Neck: Neck: normal visual inspection and no lymphadenopathy Chest: Chest palpation & inspection: normal inspection of the chest and abnormal inspection of the chest Resp: Effort & Inspection: normal respiratory effort Auscultation: clear to auscultation bilaterally Cardio: Rate: regular rate Rhythm: regular rhythm GI: GI Palp: Yes Soft to palpation Percussion: Yes suha
[2021-02-07 18:18] VITALS: BP 113/62; PULSE 72; RESP 16; O2SAT 98
== END 2021-02-07 18:20 | disposition home or self-care (01) ==
PROVIDERS: Emergency Provider Emergency Medicine; PCP Family Medicine
DX: K57.30 Diverticulosis of large intestine without perforation or abscess without bleeding (principal)
CPT/HCPCS: 36415; 74177; 80053; 81001; 83605; 83690; 85025; 85610; 85730; 96361; 96365; 96375; 96376; 99283; 99284; C9113; J0696; J2405; J7040; Q9967

== ENCOUNTER → 2021-02-26 02:00 | Outpatient (CLI) | payer OTHER, SELFPAY ==
[2021-02-26 17:39] LABS: SARS-CoV-2 RNA PCR Negative
== END ==
PROVIDERS: PCP Family Medicine; Visit Provider Internal Medicine Gastroenterology
DX: Z01.812 Encounter for preprocedural laboratory examination (principal); Z20.822 Contact with and (suspected) exposure to COVID-19
CPT/HCPCS: C9803; U0003; U0005

== ENCOUNTER 2021-03-01 02:02 | Day surgery (SDC) | payer OTHER, SELFPAY ==
[2021-02-21 11:37] VITALS: BMI 48.0
[2021-03-01 07:04] VITALS: BP 137/90; PULSE 77; RESP 16; TEMP 36.2; O2SAT 100; BMI 46.7
[2021-03-01] MEDS: LACTATED RINGERS 1,000 ML 75 ML IV CONT (07:15)
--- NOTE | 2021-03-01 07:44 | P.PNAN_ITS ---
Anes - Initial Pre Proc Eval Procedure: Operation Date: 03/01/21 08:00 Proposed Procedures p Colonoscopy - Jasvir Perez MD Date/Time: 03/01/21 07:44 Surgeon: Jasvir Perez MD Pre Op Diagnosis: hematochezia Patient Data Age: 45 Gender: F Height: 1.65 m Weight: 127.5 kg Last Vital Signs Temp 36.2 C L 03/01/21 07:04 Pulse 77 03/01/21 07:04 Resp 16 03/01/21 07:04 BP 137/90 03/01/21 07:04 Pulse Ox 100 03/01/21 07:04 Allergies Allergy/AdvReac Type Severity Reaction Status Date / Time No Known Allergies Allergy Mild Verified 03/01/21 07:01 Home Medications Medication Instructions Recorded Confirmed Type fentanyl 1 patch TRANSDERMAL Q72H 05/29/19 03/01/21 History hydrocodone-acetaminophen [[place]] 1 tablet PO Q4-6H PRN 05/29/19 03/01/21 History gabapentin 600 mg PO TID 08/04/19 03/01/21 History acetaminophen [Tylenol] 650 mg PO Q8H PRN #20 cap 02/07/21 03/01/21 Rx carisoprodol 500 mg PO TID 02/07/21 03/01/21 History bupropion HCl 300 mg PO DAILY 02/21/21 03/01/21 History divalproex 250 mg PO BID 02/21/21 03/01/21 History ondansetron HCl [Zofran] 4 mg PO Q8H PRN 02/21/21 03/01/21 History sumatriptan succinate 100 mg PO BID PRN 02/21/21 03/01/21 History Patient hx anesthesia problems: none Family hx anesthesia problems: none PMFSH Past Medical History Medical History Arthritis Chronic headaches Chronic low back pain Osteoporosis Surgical History Surgical History History of cholecystectomy History of hysterectomy History of tubal ligation Family History Family History Other Arthritis Asthma Cancer of kidney Heart disease Hypertension Kidney disorder Liver cancer Social History Social History Smoking status: Never smoker Alcohol intake: never Substance use: never Living arrangements: with family Gender identity (if verbalized by the patient): Female Spiritual care concerns: No Anes - Eval Final PreProcedure Day of Procedure 03/01/21 07:44 Patient weight: morbidly obese Heart: regular rate and rhythm Lungs: clear to auscultation Airway: Mallampati scale class II Neurological: alert and oriented Last oral intake: >/= 8 hours ASA classification: III Emergent: no Anesthetic plan: proceed Anesthesia type and monitoring: general GIVS and standard monitoring Informed Consent: The patient's anesthetic plan and its attendant risks and benefits were discussed with the patient/family/POA. Questions were solicited and answers provided to the satisfaction of the patient/family/POA.
--- NOTE | 2021-03-01 07:51 | PM.HPGS ---
History of Present Illness History of Present Illness Consent: Risks, benefits, and alternatives have been discussed and questions answered. Patient agrees to proceed with procedure. Chief complaint: hematochezia Narrative: Deanna Cardoza is a 45 year old female had blood in stools now resolved, came to ER and had CT scan that showed mild diverticulosis. Last colonoscopy ~ 5 years ago. Review of Systems Constitutional: Constitutional: Denies headache(s) and Denies weakness Eyes: Eyes: Denies blurry vision ENT: Reports Normal hearing present, Denies headache(s) and Denies neck pain Cardiovascular: Cardiovascular: Denies chest pain and Denies dyspnea Respiratory: Respiratory: Denies dyspnea Gastrointestinal: Gastrointestinal: Reports no additional gastrointestinal complaints Genitourinary: Genitourinary: Denies dysuria Musculoskeletal: Musculoskeletal: Denies neck pain Integumentary/Breasts: Skin/Breast: Denies dry skin Neurologic: Reports Normal hearing present, Denies headache(s) and Denies weakness Psychiatric: Psychiatric: Denies anxiety Endocrine: Endocrine: Denies change in body appearance Hematologic/Lymphatic: Hematologic/Lymphatic: Denies easy bleeding Allergic/Immunologic: Allergic/Immunologic: Denies urticaria PMFSH Past Medical History Medical History (Updated 03/01/21 @ 07:52 by Jasvir Perez MD) Arthritis Blood in stool Chronic headaches Chronic low back pain Osteoporosis Surgical History Surgical History History of cholecystectomy History of hysterectomy History of tubal ligation Family History Family History Other Arthritis Asthma Cancer of kidney Heart disease Hypertension Kidney disorder Liver cancer Social History Social History Smoking status: Never smoker Alcohol intake: never Substance use: never Living arrangements: with family Gender identity (if verbalized by the patient): Female Spiritual care concerns: No Meds Home Medications and Allergies Home Medications Medication Instructions Recorded Confirmed Type fentanyl 1 patch TRANSDERMAL Q72H 05/29/19 03/01/21 History hydrocodone-acetaminophen [[place]] 1 tablet PO Q4-6H PRN 05/29/19 03/01/21 History gabapentin 600 mg PO TID 08/04/19 03/01/21 History acetaminophen [Tylenol] 650 mg PO Q8H PRN #20 cap 02/07/21 03/01/21 Rx carisoprodol 500 mg PO TID 02/07/21 03/01/21 History bupropion HCl 300 mg PO DAILY 02/21/21 03/01/21 History divalproex 250 mg PO BID 02/21/21 03/01/21 History ondansetron HCl [Zofran] 4 mg PO Q8H PRN 02/21/21 03/01/21 History sumatriptan succinate 100 mg PO BID PRN 02/21/21 03/01/21 History Allergies Allergy/AdvReac Type Severity Reaction Status Date / Time No Known Allergies Allergy Mild Verified 03/01/21 07:01 Vital Signs Vital Signs - 24 hr 03/01/21 07:04 Temperature 97.2 F L Pulse Rate 77 Respiratory Rate 16 Blood Pressure 137/90 Pulse Oximetry 100 Exam Const: General: comfortable and no acute distress Nutritional Appearance: obese HENMT: General nose exam: Normal nares present Eyes: General: appearance normal, both eyes and all related structures Neck: Neck: no JVD Resp: Auscultation: clear to auscultation bilaterally Cardio: Rate: regular rate Rhythm: regular rhythm GI: Inspection: non-distended GI Palp: Yes Soft to palpation Skin: General skin exam: normal color Neuro: General: gait normal Speech: normal speech Extrem: General: normal to inspection Psych: Mental Status: mental status grossly normal Assessment and Plan Assessment and plan (1) Blood in stool: Code(s): K92.1 - Melena Status: Acute Assessment and Plan: colonoscopy (2) Diverticulosis large intestine w/o perforation or abscess w/bleeding: Co
[2021-03-01 08:12] VITALS: BP 133/72; PULSE 75; RESP 13; O2SAT 99
[2021-03-01 08:22] VITALS: BP 133/54; PULSE 63; RESP 12; O2SAT 99
[2021-03-01 08:32] VITALS: BP 136/76; PULSE 63; RESP 12; O2SAT 98
== END 2021-03-01 08:42 | disposition home or self-care (01) ==
PROVIDERS: PCP Family Medicine; Visit Provider Internal Medicine Gastroenterology
PROC: 0DJD8ZZ Inspection of Lower Intestinal Tract, Via Natural or Artificial Opening Endoscopic (ICD-10-PCS; CPT 45378; principal; 2021-03-01 08:00)
DX: K92.1 Melena (principal); K57.30 Diverticulosis of large intestine without perforation or abscess without bleeding; K64.8 Other hemorrhoids; M81.0 Age-related osteoporosis without current pathological fracture; M19.90 Unspecified osteoarthritis, unspecified site; M54.5 Low back pain; G89.29 Other chronic pain; G44.89 Other headache syndrome
CPT/HCPCS: 45378; J7120

== ENCOUNTER 2021-03-12 08:28 | Outpatient (CLI) | payer OTHER, SELFPAY ==
--- NOTE | 2021-04-06 20:23 | WPDHOMESLEEP ---
Sleep Study - Home Unattended Date of Study: 03/12/21 Ordering Provider: Luis Wise MD Interpreting Provider: Vandana Gipson MD Home Sleep Study Type: Apnea Link Air Height: 1.65 m Weight: 129.274 kg Body Mass Index: 47.4 Neck Circumference (inches): 15 [place]: 13 Reason for Sleep Study Frequent nighttime awakenings; difficulty falling asleep, staying asleep and difficulty waking in the morning Sleep History Deanna Cardoza is a 45 year old female with difficulty falling asleep and staying asleep. She has tried melatonin however this caused nightmares. She does not awaken at night feeling short of breath or having heartburn symptoms with belching or coughing. She rarely snores, and never loudly enough that others complain. She occasionally has trouble sleeping with a cold. She does not wake up gasping for breath at night or if her breathing problems at night observed by others. She does not sweat excessively at night or notice her heart pounding or beating irregularly at night. She frequently falls asleep during the day, frequently involuntarily, and occasionally falls asleep while driving. She does not have loss of muscle tone with strong emotion. She occasionally has daytime difficulties due to excessive sleepiness. She does not feel paralyzed on waking or falling asleep or have vivid dreamlike scenes upon awakening or falling asleep. She does not feel afraid to go to sleep. She rarely has nightmares. She occasionally remembers her dreams. She frequently has racing thoughts. She occasionally feels sad or depressed. She frequently has anxiety and muscular tension. She does not notice parts of her body jerking and she does not kick at night. She does not have crawling or aching feelings in her legs. She frequently has leg pain at night. She does not have morning jaw pain or grind her teeth during sleep. She frequently is bothered by pain during the day, frequently awakened by pain at night. She frequently wakes up feeling stiff in the morning with sore achy muscles and pain in the neck and spine. She has fatigue, loss of sexual drive, memory problems, headaches and insomnia. She has days when she has q Lots of energy, will stay up all day and can have high energy for 2-3 days with very little sleep. Then she has days with extreme fatigue and excessive sleepiness making it difficult to get out of bed. She can no longer planned family activities such as barbecues and other special events due to her fatigue and excessive sleepiness. Normal bedtime is 9:00 to 10:00 p.m. falling asleep sometimes within 10-15 minutes, and sometimes taking hours to fall asleep. She wakes on average 4 times at night. During these awakenings, she may go urinate, drink water, take a pain pill, reposition and try to return to sleep. Awakenings may last from minutes to hours. She wakes in the morning around 5:00 a.m. She sometimes takes naps. Short naps are not refreshing. She is drowsy for 2 hours after waking. She feel better in the afternoon than other times of day. She has 5 children who sometimes wake her at night. Habits: no tobacco; she drinks 48 oz of caffeine a day, no alcohol or recreational drugs. [facility] Past Medical History Medical History (Updated 04/06/21 @ 20:54 by Vandana Gipson MD) Anxiety Arthritis Blood in stool Chronic headaches Chronic low back pain Depression Neuropathy Osteoporosis Surgical History Surgical History History of cholecystectomy History of hysterectomy History of tubal ligation Family History Family History Other Arthritis Asthma Cancer of kidney Heart disease Hypertension Kidney disorder Liver cancer Social History Social History Smoking status: Never smoker Alcohol intake: never Substance use: never [place]
[2021-04-06 21:19] VITALS: BMI 47.4
== END 2021-03-13 09:54 | disposition home or self-care (01) ==
LOC: ANHCSM 08:32
PROVIDERS: PCP Family Medicine; Visit Provider Family Medicine
DX: G47.33 Obstructive sleep apnea (adult) (pediatric) (principal)
CPT/HCPCS: 95806

== ENCOUNTER 2021-04-01 08:41 | Outpatient (CLI) | payer OTHER, SELFPAY ==
--- NOTE | ~2021-04-01 | MM_ITS ---
EXAMINATION: MM screening arianna BI w maris HISTORY: Screening TECHNIQUE: Craniocaudal and mediolateral oblique 3-D tomosynthesis images were obtained and synthetic 2-D images were generated. CAD analysis was submitted and interpreted. COMPARISON: No prior mammogram is available for comparison at this institution. BREAST PARENCHYMAL COMPOSITION: There are scattered areas of fibroglandular density. FINDINGS: There is no evidence of suspicious mass, calcification, or architectural distortion to sugg est malignancy in either breast. There has been no suspicious interval change. IMPRESSION: 1. No mammographic evidence of malignancy. 2. Recommend routine screening mammography in one year. BI-RADS Category 1: Negative Reviewed, dictated and finalized at [facility].
== END 2021-04-01 08:42 | disposition home or self-care (01) ==
LOC: CHSIMG 08:43
PROVIDERS: PCP Family Medicine; Visit Provider Student in an Organized Health Care Education/Training Program
DX: Z12.31 Encounter for screening mammogram for malignant neoplasm of breast (principal)
CPT/HCPCS: 77063; 77067

== ENCOUNTER 2021-04-23 16:18 | Outpatient (CLI) | payer OTHER, SELFPAY ==
[2021-04-23 18:03] LABS: Influenza A QL RT-PCR Negative (Negative); Influenza B QL RT-PCR Negative (Negative); SARS-CoV-2 RNA PCR Positive (Negative)
== END 2021-04-23 16:19 | disposition home or self-care (01) ==
LOC: CHSLAB 16:19
PROVIDERS: PCP Family Medicine; Visit Provider Family Medicine
DX: U07.1 COVID-19 (principal)
CPT/HCPCS: 87502; C9803; U0003; U0005

== ENCOUNTER 2021-04-25 13:00 | Outpatient (CLI) | payer OTHER, SELFPAY ==
--- NOTE | 2021-04-25 13:10 | PC.NURSE ---
Presents per WC for covid infusion
[2021-04-25] MEDS: diphenhydrAMINE HCl CAP 25 MG CAPSULE PO (13:27)
--- NOTE | 2021-04-25 13:28 | PC.NURSE ---
Benadryl given, patient is on fentanyl patch and took compazine before arrival so did not want to take tylenol or pepcid, pharmacy made aware.
[2021-04-25 13:29] VITALS: BP 133/70; PULSE 98; RESP 18; TEMP 36; O2SAT 96
[2021-04-25 14:39] VITALS: BP 104/58; PULSE 76; RESP 18; TEMP 35.9; O2SAT 95
== END 2021-04-25 13:01 | disposition home or self-care (01) ==
LOC: CHSTREATRM 13:02
PROVIDERS: PCP Family Medicine; Visit Provider Family Medicine
DX: Z23 Encounter for immunization (principal); U07.1 COVID-19
CPT/HCPCS: 96365; A9270; M0245; Q0245

== ENCOUNTER 2021-07-03 16:31 | Outpatient (CLI) | payer OTHER, SELFPAY ==
[2021-07-03 16:45] LABS: Basophils Absolute Auto 0.03 K/mm3 (0.00-0.10); Basophils Percent Auto 0.5 % (0.0-1.0); Eosinophils Absolute Auto 0.11 K/mm3 (0.02-0.50); Eosinophils Percent Auto 1.9 % (1.0-6.0); Hematocrit 37.1 % (35.0-49.0); Hemoglobin 12.1 g/dL (12.0-15.0); Immature Granulocyte Absolute 0.02 K/mm3 (0.00-0.00); Immature Granulocyte Percent A 0.3 % (0.0-0.0); Lymphocytes Absolute Auto 2.91 K/mm3 (1.10-4.50); Mean Corpuscular HGB Conc 32.6 g/dL (32.0-36.0); Mean Corpuscular Hemoglobin 29.7 pg (27.0-31.0); Mean Corpuscular Volume 90.9 fL (78.0-102.0); Mean Platelet Volume 9.5 fl (9.2-11.8); Monocytes Absolute Auto 0.48 K/mm3 (0.10-0.90); Monocytes Percent Auto 8.1 % (2.0-11.0); Neutrophils Absolute Auto 2.4 K/mm3 (1.7-7.2); Neutrophils Percent Auto 40.2 % (50.0-70.0); Platelet Count Result 260 K/mm3 (150-420); Red Blood Count 4.08 M/mm3 (4.20-5.40); Red Cell Distribution Width 12.2 % (11.6-14.4); White Blood Count 5.9 K/mm3 (4.8-10.8)
[2021-07-03 16:49] LABS: Appearance Urine Clear (Clear); Bilirubin Urine Negative (Negative); Color Urine Light Yellow (Yellow); Glucose Urine UA Negative (Negative); Ketones Urine Negative (Negative); Leukocyte Esterase Ur Trace (Negative); Nitrate Urine Negative (Negative); Protein Urine Negative (Negative); Specific Grav Ur >= 1.030 (1.010-1.020); Urobilinogen Urine 0.2 mg/dL (0.2-1.0); pH Urine 5.5 (5.0-8.0)
[2021-07-03 16:57] LABS: Add Urine Microscopic? YES; Bacteria Urine 1+ /hpf; Blood Urine Trace-Intact (Negative); Mucus Urine Few /lpf; RBC Urine 0-2 /hpf (0-2); Squamous Epithelial Cell Urine Few /hpf (Few); WBC Urine None seen /hpf (0-3)
[2021-07-03 17:17] LABS: Alanine Aminotransferase 21 U/L (14-59); Albumin Level 3.3 g/dL (3.4-5.0); Alkaline Phosphatase 81 U/L (46-116); Amylase 32 U/L (25-115); Anion Gap 5 mmol/L (8-16); Aspartate Amino Transferase 20 U/L (15-37); Bilirubin,Total 0.2 mg/dL (0.00-1.00); Blood Urea Nitrogen 13 mg/dL (7-18); Calcium 8.7 mg/dL (8.5-10.1); Carbon Dioxide 33 mmol/L (21-32); Chloride 104 mmol/L (98-108); Estimated Glomerular Filt Rate > 60; Glucose 91 mg/dL (70-99); Lipase 62 U/L (73-393); Osmolality Calculated 294 mOsm/kg (285-295); Potassium 3.9 mmol/L (3.5-5.1); Sodium 142 mmol/L (136-145); Total Protein 7.5 g/dL (6.4-8.2)
== END 2021-07-03 16:32 | disposition home or self-care (01) ==
LOC: CHSLAB 16:33
PROVIDERS: PCP Family Medicine; Visit Provider Family Medicine
DX: R10.31 Right lower quadrant pain (principal)
CPT/HCPCS: 36415; 80053; 81001; 82150; 83690; 85025

== ENCOUNTER 2021-07-05 10:06 | Outpatient (CLI) | payer OTHER, SELFPAY ==
--- NOTE | ~2021-07-05 | US_ITS ---
EXAMINATION: US pelvic complete DATE: 07/05/2021 10:38 INDICATION: Right lower quadrant pain, prior hysterectomy TECHNIQUE: Multiple transabdominal sonographic images of the pelvis were obtained. COMPARISON: 07/15/2019 FINDINGS: The uterus is surgically absent. The right ovary measures 1.8 x 1.3 x 1.3 cm. The left ovar y measures 1.7 x 1.9 x 1.4 cm. There is normal vascular flow in the ovaries. There is no free fluid i n the pelvis. IMPRESSION: 1. No sonographic correlate for the patient's symptoms. 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
== END 2021-07-05 10:07 | disposition home or self-care (01) ==
LOC: CHSIMG 10:07
PROVIDERS: PCP Family Medicine; Visit Provider Family Medicine
DX: R10.31 Right lower quadrant pain (principal)
CPT/HCPCS: 76856

== ENCOUNTER 2021-09-13 13:52 | Outpatient (CLI) | payer OTHER, SELFPAY ==
[2021-09-13 15:34] LABS: Influenza A QL RT-PCR Negative (Negative); Influenza B QL RT-PCR Negative (Negative); SARS-CoV-2 RNA PCR Negative (Negative)
== END 2021-09-13 13:53 | disposition home or self-care (01) ==
LOC: CHSLAB 13:54
PROVIDERS: PCP Family Medicine; Visit Provider Family Medicine
DX: J06.9 Acute upper respiratory infection, unspecified (principal); Z20.822 Contact with and (suspected) exposure to COVID-19
CPT/HCPCS: 87502; C9803; U0003; U0005

== ENCOUNTER 2021-10-25 11:41 | Outpatient (CLI) | payer OTHER, SELFPAY ==
--- NOTE | ~2021-10-25 | XR_ITS ---
EXAMINATION: XR lumbar spine 2-3V EXAM DATE: 10/25/2021 12:02 INDICATION: Spinal stenosis. TECHNIQUE: Lumber spine frontal, lateral, lateral L5-S1 projections for interpretation. Comparison is made to prior examination from 03/12/2020. FINDINGS: Moderate loss of the L4-5 and L5-S1 disc height, mild to moderate L3-4 and mild at the leve ls above. There is mild to moderate lumbar facet arthropathy, lower lobe predominant. Sacrum, sacroil iac joints, sacral arcuate lines are intact. Paraspinal soft tissue is unremarkable. The vertebral pili dies are aligned in the AP dimension. There are cholecystectomy clips. Difficult to identify any sign ificant interval change. IMPRESSION: 1. Moderate lower lumbar disc disease. 2. Mild to moderate arthropathy. 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
== END 2021-10-25 11:42 | disposition home or self-care (01) ==
LOC: CHSIMG 11:43
PROVIDERS: PCP Family Medicine; Visit Provider Family Medicine
DX: M48.07 Spinal stenosis, lumbosacral region (principal)
CPT/HCPCS: 72100

== ENCOUNTER 2021-11-21 12:02 | Outpatient (CLI) | payer OTHER, SELFPAY ==
--- NOTE | ~2021-11-21 | XR_ITS ---
EXAMINATION: XR knee LT 3V DATE: 11/21/2021 12:30 INDICATION: Left knee pain. TECHNIQUE: 3 views of left knee were obtained. COMPARISON: Left knee radiographs 11/07/2020 FINDINGS: Bone alignment is normal. No fracture. There is mild tricompartmental osteoarthritis charac terized by tiny osteophytes. No joint space narrowing. There is a moderate-sized knee joint effusion. IMPRESSION: 1. Mild left knee osteoarthritis. 2. Moderate-sized left knee joint effusion. 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
== END 2021-11-21 12:03 | disposition home or self-care (01) ==
LOC: CHSIMG 12:03
PROVIDERS: PCP Family Medicine; Visit Provider Family Medicine
DX: M25.562 Pain in left knee (principal); M25.462 Effusion, left knee
CPT/HCPCS: 73562

== ENCOUNTER 2021-12-13 16:07 | Outpatient (CLI) | payer OTHER, SELFPAY ==
[2021-12-13 17:32] LABS: SARS-CoV-2 RNA PCR Positive (Negative)
[2021-12-13 17:35] LABS: Influenza A QL RT-PCR Negative (Negative); Influenza B QL RT-PCR Negative (Negative)
== END 2021-12-13 16:08 | disposition home or self-care (01) ==
LOC: CHSLAB 16:09
PROVIDERS: PCP Family Medicine; Visit Provider Family Medicine
DX: U07.1 COVID-19 (principal); R51.9 Headache, unspecified
CPT/HCPCS: 87502; C9803; U0003; U0005

== ENCOUNTER 2022-05-22 14:34 | Outpatient (CLI) | payer OTHER, SELFPAY ==
[2022-05-22 15:17] LABS: Strep Group A RT-PCR Not Detected (Negative)
[2022-05-22 15:24] LABS: Influenza A QL RT-PCR Negative (Negative); Influenza B QL RT-PCR Negative (Negative); SARS-CoV-2 RNA PCR Negative (Negative)
[2022-05-22 15:25] LABS: RSV RNA, RT-PCR Negative (Negative)
== END 2022-05-22 14:35 | disposition home or self-care (01) ==
PROVIDERS: PCP Family Medicine; Visit Provider Family Medicine
DX: J06.9 Acute upper respiratory infection, unspecified (principal); Z20.822 Contact with and (suspected) exposure to COVID-19
CPT/HCPCS: 87502; 87634; 87651; U0003; U0005

== ENCOUNTER 2022-07-03 08:12 | Outpatient (CLI) | payer OTHER, SELFPAY ==
[2022-07-03 08:57] LABS: Influenza A QL RT-PCR Negative (Negative); Influenza B QL RT-PCR Negative (Negative); SARS-CoV-2 RNA PCR Negative (Negative)
== END 2022-07-03 08:13 | disposition home or self-care (01) ==
LOC: CHSLAB 08:14
PROVIDERS: PCP Family Medicine; Visit Provider Family Medicine
DX: R50.9 Fever, unspecified (principal); Z20.822 Contact with and (suspected) exposure to COVID-19
CPT/HCPCS: 87636

== ENCOUNTER 2022-07-10 09:38 | Outpatient (CLI) | payer OTHER, SELFPAY ==
--- NOTE | ~2022-07-10 | XR_ITS ---
Lumbosacral Spine: AP, oblique, and lateral views Clinical History: Pain, radiculopathy Findings: The normal lordotic curve is maintained. The vertebral bodies and posterior elements are i ntact. Mild degenerative disc narrowing is present at L3-L4 and L4-L5. There are mild facet joint deg enerative changes at L4-L5 and L5-S1.. The sacroiliac joints are normally outlined. Impression: Mild degenerative changes, as detailed above. Reviewed, dictated and finalized at location M. MENT THERAPIST Impression: Mild degenerative changes, as detailed above.
== END 2022-07-10 09:39 | disposition home or self-care (01) ==
LOC: CHSIMG 09:40
PROVIDERS: PCP Family Medicine; Visit Provider Family Medicine
DX: M54.16 Radiculopathy, lumbar region (principal)
CPT/HCPCS: 72110

== ENCOUNTER 2022-07-28 16:01 | Outpatient (CLI) | payer OTHER, SELFPAY ==
--- NOTE | ~2022-07-28 | XR_ITS ---
EXAMINATION: XR chest 2V DATE: 07/28/2022 17:37 INDICATION: Acute bronchitis and cough TECHNIQUE: Frontal and lateral views of the chest are obtained COMPARISON: 10/29/2007 FINDINGS: The lungs are free of acute opacities. No pleural effusion or pneumothorax. The cardiomedia stinal silhouette is normal. There is mild thoracic spondylosis. Surgical clips in the right upper qu adrant are likely from prior cholecystectomy. IMPRESSION: 1. No acute cardiopulmonary abnormality. Reviewed, dictated and finalized at location L. R [employer]
[2022-07-28 17:12] LABS: Influenza A QL RT-PCR Negative (Negative); Influenza B QL RT-PCR Negative (Negative); SARS-CoV-2 RNA PCR Negative (Negative)
== END 2022-07-28 16:02 | disposition home or self-care (01) ==
PROVIDERS: PCP Family Medicine; Visit Provider Family Medicine
DX: R05.9 Cough, unspecified (principal); Z20.822 Contact with and (suspected) exposure to COVID-19
CPT/HCPCS: 71046; 87636

== ENCOUNTER 2022-08-27 19:04 | Outpatient (CLI) | payer OTHER, SELFPAY ==
--- NOTE | ~2022-08-27 | XR_ITS ---
EXAMINATION: XR elbow RT min 3V DATE: 08/27/2022 19:36 INDICATION: Right elbow pain post fall 2 weeks prior TECHNIQUE: Anteroposterior, two oblique and lateral views of the right elbow were obtained. COMPARISON: None. FINDINGS: Alignment is normal. No fracture or joint effusion. Joint spaces are normal. Soft tissues are unremar kable. IMPRESSION: 1. Negative right elbow radiographs. 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
== END 2022-08-27 19:05 | disposition home or self-care (01) ==
LOC: CHSIMG 19:06
PROVIDERS: PCP Family Medicine; Visit Provider Family Medicine
DX: M25.521 Pain in right elbow (principal)
CPT/HCPCS: 73080

== ENCOUNTER 2022-10-14 16:01 | Outpatient (CLI) | payer OTHER, SELFPAY ==
[2022-10-14 17:08] LABS: Influenza Control Valid (Valid); SARS-CoV-2 Ag Negative (Negative)
[2022-10-14 17:20] LABS: Strep Group A RT-PCR NOT DETECTED (Negative)
== END 2022-10-14 16:02 | disposition home or self-care (01) ==
PROVIDERS: PCP Family Medicine; Visit Provider Nurse Practitioner Family
DX: J02.9 Acute pharyngitis, unspecified (principal); Z20.822 Contact with and (suspected) exposure to COVID-19
CPT/HCPCS: 87426; 87651; 87804; C9803

== ENCOUNTER 2022-10-29 18:55 | Outpatient (CLI) | payer OTHER, SELFPAY ==
--- NOTE | ~2022-10-29 | XR_ITS ---
Clinical Indication: Cough PA and lateral views of the chest: Comparison: 07/28/2022 Findings: The lungs are clear, without evidence of focal consolidation or pleural effusion. Cardiome diastinal silhouette is within normal limits. Bones and soft tissues are unremarkable. Impression: Normal chest. Reviewed, dictated and finalized at location . Impression: Normal chest.
[2022-10-29 20:16] LABS: Thyroid Stimulating Hormone 2.98 uIU/mL (0.36-3.74); Vitamin B12 496 pg/mL (193-986)
[2022-11-03 09:56] LABS: RPR Screen Non-Reactive (Non-Reactive)
[2022-11-03 11:22] LABS: Methylmalonic Acid 202 nmol/L (87-318)
== END 2022-10-29 18:56 | disposition home or self-care (01) ==
LOC: CHSLAB 18:56
PROVIDERS: PCP Family Medicine; Visit Provider Family Medicine
DX: R41.3 Other amnesia (principal); R05.1 Acute cough
CPT/HCPCS: 36415; 71046; 82607; 83921; 84443; 86592

== ENCOUNTER 2022-12-15 08:54 | Emergency (ER) | payer OTHER, SELFPAY ==
[2022-12-15] VITALS (43 sets, daily range): BP systolic 115–138; BP diastolic 69–110; PULSE 67–89; RESP 6–20; TEMP 37.2; O2SAT 91–99
--- NOTE | ~2022-12-15 | XR_ITS ---
EXAMINATION: XR chest 1V portable DATE: 12/15/2022 09:53 INDICATION: Left chest pain. TECHNIQUE: A single frontal view of the chest was obtained. COMPARISON: Chest 2 views 10/29/2022 FINDINGS: The chest demonstrates clear lungs without pneumonia, pleural effusion, or pneumothorax. Th e heart size is normal. Surgical clips in the right upper quadrant are likely from cholecystectomy. IMPRESSION: 1. No acute cardiopulmonary disease. 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
--- NOTE | 2022-12-15 08:55 | ECG_ITS ---
Measurements Intervals [place] Rate: 80 P: 50 ID: [id number] QRS: 33 QRSD: 96 T: 46 QT: 378 QTc: 437 Interpretive Statements SINUS RHYTHM EARLY PRECORDIAL R/S TRANSITION MINIMAL Q WAVES- INF/LAT LEADS BORDERLINE ECG NO PREVIOUS ECG AVAILABLE FOR COMPARISON Electronically Signed On 12-15-2022 13:52:41 CDT by Con Roberson D.O.
--- NOTE | 2022-12-15 09:06 | ED.GENADULT ---
HPI - General Adult General Chief complaint: Chest Pain Stated complaint: chest pain Time Seen by Provider: 12/15/22 09:00 History of Present Illness HPI narrative: Deanna is a 47F with a PMH of COLLINS, diverticulosis, anxiety and chronic back pain that presented to the ED with chest pain. She has had chest pain off an on for a while now. However, today she had right sided chest pain that woke her up from sleep and radiated to her left arm. She is also nauseated with some lightheadedness. It is not worse with activity and she has not vommited. Related Data Home Medications Medication Instructions Recorded Confirmed fentanyl 50 mcg/hr transdermal 1 patch transdermal Q72H 05/29/19 12/15/22 patch gabapentin 300 mg capsule 600 mg PO TID 08/04/19 12/15/22 carisoprodol 250 mg tablet 500 mg PO TID 02/07/21 12/15/22 bupropion HCl 300 mg 24 hr tablet, 300 mg PO DAILY 02/21/21 12/15/22 extended release divalproex 250 mg tablet,delayed 250 mg PO BID 02/21/21 12/15/22 release sumatriptan succinate 100 mg tablet 100 mg PO BID PRN Migraine Headache 02/21/21 12/15/22 buspirone 5 mg tablet 5 mg PO DAILY 12/15/22 12/15/22 hydrocodone 10 mg-acetaminophen 1 tablet PO TID PRN Pain (Scale 12/15/22 12/15/22 325 mg tablet Score 7-10) Allergies Allergy/AdvReac Type Severity Reaction Status Date / Time No Known Allergies Allergy Mild Verified 12/15/22 09:00 Review of Systems Review of Systems: All systems reviewed & are unremarkable except as noted in HPI and below PMFSH Past Medical History Medical History Anxiety Arthritis Blood in stool Chronic headaches Chronic low back pain Depression Neuropathy Osteoporosis Surgical History Surgical History History of cholecystectomy History of hysterectomy History of tubal ligation Family History Family History Other Arthritis Asthma Cancer of kidney Heart disease Hypertension Kidney disorder Liver cancer Social History Social History Smoking status: Never smoker Alcohol intake: never Substance use: never Living arrangements: with family Occupation/Education: occupation Gender identity (if verbalized by the patient): Female Spiritual care concerns: No Exam Const: General: healthy appearing Nutritional Appearance: well nourished Orientation/consciousness: patient oriented x3 Limitations: no limitations HENMT: Head: normal to inspection Ears: external ears normal Face/Nose/Sinus: Normal external nose present Face and sinus: normal facial exam Eyes: Conjunctivae: conjunctivae normal Pupils: Equal, round and reactive pupils present EOM: EOMs intact bilaterally Neck: Neck: normal visual inspection Chest: Chest palpation & inspection: normal inspection of the chest Resp: Effort & Inspection: normal respiratory effort Auscultation: clear to auscultation bilaterally Cardio: Rate: regular rate Rhythm: regular rhythm GI: Inspection: distended GI Palp: Yes Soft to palpation, No Tenderness to palpation present (GI) and No Guarding due to palpation present (GI) Back/Spine/Pelvis: Back: no CVA tenderness Skin: General skin exam: normal color Neuro: General: patient oriented x3 Cranial nerves: Yes Nystagmus not present Extrem: General: normal to inspection Psych: Mental Status: mental status grossly normal Course Course Emergency Course: Ordered EKG, CXR and labs. Was given Zofran, aspirin and nitro. EKG showed NSR with a rate of 80, no ectopy or ST elevation/depression CP removed with 2 Nitro. Labs were largely unremarkable. EXAMINATION: XR chest 1V portable DATE: 12/15/2022 09:53 INDICATION: Left chest pain. TECHNIQUE: A single frontal view of the chest was obtained. COMPARISON: Chest 2 views
[2022-12-15] MEDS: ASPIRIN 81 MG CHEWABLE TABLET 324 MG PO (09:13)
[2022-12-15] MEDS: NITROGLYCERIN SL 0.4 MG TABLET SUBLINGUAL ×2 (09:14→09:21)
[2022-12-15] MEDS: ONDANSETRON INJ 4 MG/2 ML VIAL IV PUSH (09:21)
[2022-12-15 09:22] LABS: Basophils Absolute Auto 0.04 K/mm3 (0.00-0.10); Basophils Percent Auto 0.6 % (0.0-1.0); Eosinophils Absolute Auto 0.09 K/mm3 (0.02-0.50); Eosinophils Percent Auto 1.4 % (1.0-6.0); Hematocrit 34.9 % (35.0-49.0); Hemoglobin 12.1 g/dL (12.0-15.0); Immature Granulocyte Absolute 0.01 K/mm3 (0.00-0.00); Immature Granulocyte Percent A 0.2 % (0.0-0.0); Lymphocytes Absolute Auto 3.06 K/mm3 (1.10-4.50); Lymphocytes Percent Auto 49.3 % (18.0-42.0); Mean Corpuscular HGB Conc 34.7 g/dL (32.0-36.0); Mean Corpuscular Hemoglobin 30.3 pg (27.0-31.0); Mean Corpuscular Volume 87.5 fL (78.0-102.0); Mean Platelet Volume 9.5 fl (9.2-11.8); Monocytes Absolute Auto 0.39 K/mm3 (0.10-0.90); Monocytes Percent Auto 6.3 % (2.0-11.0); Neutrophils Absolute Auto 2.6 K/mm3 (1.7-7.2); Neutrophils Percent Auto 42.2 % (50.0-70.0); Platelet Count Result 231 K/mm3 (150-420); Red Blood Count 3.99 M/mm3 (4.20-5.40); White Blood Count 6.2 K/mm3 (4.8-10.8)
[2022-12-15 09:32] LABS: Prothrombin Time 10.5 Seconds (9.50-12.10)
--- NOTE | 2022-12-15 09:35 | PC.NURSE ---
PT REPORTED PAIN FREE POST 2 DOSES OF NITRO SL. SIG OTHER AT BEDSIDE. PT IS AWAITING LAB RESULTS AT THIS TIME. NAD NOTED. VSS PER MONITOR. WILL CONTINUE TO MONITOR.
[2022-12-15 09:40] LABS: Troponin I 4.7 ng/L (0.00-60.4)
[2022-12-15 09:42] LABS: Alanine Aminotransferase 19 U/L (14-59); Albumin Level 3.1 g/dL (3.4-5.0); Alkaline Phosphatase 77 U/L (46-116); Anion Gap 5 mmol/L (8-16); Aspartate Amino Transferase 19 U/L (15-37); Bilirubin,Total 0.2 mg/dL (0.00-1.00); Blood Urea Nitrogen 15 mg/dL (7-18); Calcium 8.5 mg/dL (8.5-10.1); Carbon Dioxide 31 mmol/L (21-32); Chloride 102 mmol/L (98-108); Estimated CRCL calculation 136 ml/min; Estimated Glomerular Filt Rate > 60; Glucose 95 mg/dL (70-99); Lipase 20 U/L (16-77); NT Pro B Type Natriuretic Pept 152 pg/mL (0-125); Osmolality Calculated 286 mOsm/kg (285-295); Potassium 3.6 mmol/L (3.5-5.1); Sodium 138 mmol/L (136-145); Total Protein 7.2 g/dL (6.4-8.2)
--- NOTE | 2022-12-15 10:24 | PC.NURSE ---
PT IS SITTING UP ON STRETCHER WATCHING TV AT THIS TIME. NAD NOTED. PT DENIES ANY PAIN, NEEDS OR COMPLAINTS. PT IS AWARE OF PLAN OF CARE, TO HAVE TROPONIN REDRAWN IN 3 HOURS. WILL CONTINUE TO MONITOR.
--- NOTE | 2022-12-15 11:12 | PC.NURSE ---
NO CHANGE IN PT STATUS. PT CONTINUES TO AWAIT LAB DRAW. PT IS RESTING ON STRETCHER WITH FAMILY AT BEDSIDE. DENIES ANY NEEDS OR COMPLAINTS. WILL CONTINUE TO MONITOR.
--- NOTE | 2022-12-15 13:49 | PC.NURSE ---
PT REMAINS PAIN FREE DURING VISIT. NAD NOTED. PT DENIES ANY NEEDS OR COMPLAINTS.
== END 2022-12-15 13:50 | disposition home or self-care (01) ==
PROVIDERS: Emergency Provider Family Medicine; PCP Family Medicine
DX: R07.9 Chest pain, unspecified (principal); G62.9 Polyneuropathy, unspecified; M81.0 Age-related osteoporosis without current pathological fracture; F41.9 Anxiety disorder, unspecified; F32.A Depression, unspecified; Z79.891 Long term (current) use of opiate analgesic
CPT/HCPCS: 36415; 71045; 80053; 83690; 83880; 84484; 85025; 85610; 93005; 96374; 99284; A9270; J2405

== ENCOUNTER 2023-03-24 14:35 | Outpatient (CLI) | payer OTHER, SELFPAY ==
[2023-03-24 16:10] LABS: Strep Group A RT-PCR NOT DETECTED (Negative)
[2023-03-24 16:19] LABS: Influenza A QL RT-PCR Negative (Negative); Influenza B QL RT-PCR Negative (Negative); SARS-CoV-2 RNA PCR Negative (Negative)
== END 2023-03-24 14:36 | disposition home or self-care (01) ==
LOC: CHSLAB 14:36
PROVIDERS: PCP Family Medicine; Visit Provider Family Medicine
DX: J06.9 Acute upper respiratory infection, unspecified (principal)
CPT/HCPCS: 87636; 87651

== ENCOUNTER 2023-04-13 11:17 | Outpatient (CLI) | payer OTHER, SELFPAY ==
[2023-04-13 12:01] LABS: Influenza A QL RT-PCR Negative (Negative); Influenza B QL RT-PCR Negative (Negative); SARS-CoV-2 RNA PCR Negative (Negative)
== END 2023-04-13 11:18 | disposition home or self-care (01) ==
LOC: CHSTREATRM 11:18
PROVIDERS: PCP Family Medicine; Visit Provider Family Medicine
DX: R50.9 Fever, unspecified (principal); R09.89 Other specified symptoms and signs involving the circulatory and respiratory systems
CPT/HCPCS: 87636

== ENCOUNTER 2023-06-02 16:07 | Emergency (ER) | payer OTHER, SELFPAY ==
[2023-06-02 16:08] VITALS: BP 137/81; PULSE 85; RESP 20; TEMP 36.7; O2SAT 97
--- NOTE | 2023-06-02 16:21 | ED.GENADULT ---
HPI - General Adult General Chief complaint: Weakness Stated complaint: nausea Time Seen by Provider: 06/02/23 16:08 History of Present Illness HPI narrative: This is a 47-year-old female, with history of chronic back pain, fentanyl patch, Pocahontas and gabapentin, who presents the emergency department complaining of fatigue, nausea and lightheadedness for the past day. She denies any known sick contacts or recent travel. She complains of nasal congestion and hoarse voice but denies sore throat, cough, chest pain, shortness of breath, vomiting, diarrhea or pain elsewhere. She denies recent change in any medications. Related Data Home Medications Medication Instructions Recorded Confirmed fentanyl 50 mcg/hr transdermal 1 patch transdermal Q72H 05/29/19 06/02/23 patch gabapentin 300 mg capsule 600 mg PO TID 08/04/19 06/02/23 carisoprodol 250 mg tablet 500 mg PO TID 02/07/21 06/02/23 bupropion HCl 300 mg 24 hr tablet, 300 mg PO DAILY 02/21/21 06/02/23 extended release buspirone 5 mg tablet 5 mg PO DAILY 12/15/22 06/02/23 hydrocodone 10 mg-acetaminophen 1 tablet PO TID PRN Pain (Scale 12/15/22 06/02/23 325 mg tablet Score 7-10) aripiprazole 10 mg tablet 10 mg PO DAILY 06/02/23 06/02/23 conjugated estrogens 0.9 mg tablet 0.9 mg PO DAILY 06/02/23 06/02/23 (Premarin) Allergies Allergy/AdvReac Type Severity Reaction Status Date / Time No Known Allergies Allergy Mild Verified 06/02/23 16:11 Review of Systems Review of Systems: CONSTITUTIONAL: Fatigue denies fever, chills, or sweats. ENT: Congestion and hoarse voice denies rhinorrhea, sore throat, or otalgia. CARDIOVASCULAR: Denies chest pain, palpitations, or edema. RESPIRATORY: Denies cough or dyspnea. GASTROINTESTINAL: Denies abdominal pain, nausea, vomiting, or diarrhea. GENITOURINARY: Denies dysuria or hematuria. SKIN: Denies rash or itching. MUSCULOSKELETAL: Denies back pain, joint pain, or myalgia. NEUROLOGIC: Lightheadedness denies headache, numbness, or weakness. PSYCHIATRIC: Denies anxiety or depression. [facility] Past Medical History Medical History Anxiety Arthritis Blood in stool Chronic headaches Chronic low back pain Depression Neuropathy Osteoporosis Surgical History Surgical History History of cholecystectomy History of hysterectomy History of tubal ligation Family History Family History Other Arthritis Asthma Cancer of kidney Heart disease Hypertension Kidney disorder Liver cancer Social History Social History Smoking status: Never smoker Alcohol intake: never Substance use: never Living arrangements: with family Occupation/Education: occupation Gender identity (if verbalized by the patient): Female Spiritual care concerns: No Exam Narrative: GENERAL: Well-developed, well-nourished, and in no acute distress. HEAD: Normocephalic, atraumatic. EYES: PERRLA and EOMI. ENT: Nares clear, no rhinorrhea or epistaxis. Mucous membranes moist. Oropharynx without tonsillar hypertrophy exudate or other lesions. CHEST: Clear to auscultation. No respiratory distress. No wheezes rales or rhonchi HEART: Regular rate and rhythm. No murmur heard. Normal peripheral pulses. ABDOMEN: Soft, nontender, nondistended, normal active bowel sounds. EXTREMITIES: Normal range of motion. No edema. SKIN: Warm, dry, no rash. A 50mcg/hr fentanyl patches noted on the skin of the anterior right chest wall NEURO: Alert and oriented x3. Moving all 4 limbs purposefully. PSYCH: Normal mood and affect. Course Course Emergency Course: 16:26 - MANAGER BACKGROUND review shows the patient has monthly refills of both Pocahontas and fentanyl patches for the past year, with each refill providing 1 month's worth of medications. There are
[2023-06-02] MEDS: SODIUM CHLORIDE 0.9% IV 1,000 ML 999 ML IV CONT (16:31)
--- NOTE | 2023-06-02 16:33 | PC.NURSE ---
FENTANYL PATCH NOTED TO RT CHEST, NO OTHER PATCHES NOTED UPON EXAM. PT HAS IVF INFUSING ORDERED WITHOUT DIFFICULTY. PT IS AWAITING LAB RESULTS AT THIS TIME. WARM BLANKET PROVIDED AND LIGHTS OFF AT PT REQUEST. WILL CONTINUE TO MONITOR.
[2023-06-02 16:35] LABS: Basophils Absolute Auto 0.03 K/mm3 (0.00-0.10); Basophils Percent Auto 0.3 % (0.0-1.0); Eosinophils Absolute Auto 0.05 K/mm3 (0.02-0.50); Eosinophils Percent Auto 0.5 % (1.0-6.0); Hematocrit 34.4 % (35.0-49.0); Hemoglobin 11.4 g/dL (12.0-15.0); Immature Granulocyte Absolute 0.02 K/mm3 (0.00-0.00); Immature Granulocyte Percent A 0.2 % (0.0-0.0); Lymphocytes Absolute Auto 3.05 K/mm3 (1.10-4.50); Lymphocytes Percent Auto 32.3 % (18.0-42.0); Mean Corpuscular HGB Conc 33.1 g/dL (32.0-36.0); Mean Corpuscular Hemoglobin 30.3 pg (27.0-31.0); Mean Corpuscular Volume 91.5 fL (78.0-102.0); Mean Platelet Volume 9.5 fl (9.2-11.8); Monocytes Absolute Auto 0.43 K/mm3 (0.10-0.90); Monocytes Percent Auto 4.6 % (2.0-11.0); Neutrophils Absolute Auto 5.9 K/mm3 (1.7-7.2); Neutrophils Percent Auto 62.1 % (50.0-70.0); Platelet Count Result 192 K/mm3 (150-420); Red Blood Count 3.76 M/mm3 (4.20-5.40); Red Cell Distribution Width 12.4 % (11.6-14.4); White Blood Count 9.4 K/mm3 (4.8-10.8)
[2023-06-02 16:51] LABS: Alanine Aminotransferase 27 U/L (14-59); Anion Gap 3 mmol/L (8-16); Aspartate Amino Transferase 31 U/L (15-37); Bilirubin,Total 0.3 mg/dL (0.00-1.00); Blood Urea Nitrogen 16 mg/dL (7-18); Calcium 8.3 mg/dL (8.5-10.1); Carbon Dioxide 35 mmol/L (21-32); Chloride 104 mmol/L (98-108); Estimated CRCL calculation 99 ml/min; Estimated Glomerular Filt Rate > 60; Glucose 119 mg/dL (70-99); Osmolality Calculated 296 mOsm/kg (285-295); Potassium 3.5 mmol/L (3.5-5.1); Sodium 142 mmol/L (136-145)
[2023-06-02 16:52] LABS: Albumin Level 2.8 g/dL (3.4-5.0); Alkaline Phosphatase 72 U/L (46-116); Total Protein 6.9 g/dL (6.4-8.2)
[2023-06-02 17:12] LABS: Influenza A QL RT-PCR Negative (Negative); Influenza B QL RT-PCR Negative (Negative); SARS-CoV-2 RNA PCR Negative (Negative)
--- NOTE | 2023-06-02 17:24 | PC.NURSE ---
PT WAS SLEEPING UPON REASSESSMENT. PT DENIES ANY NEEDS OR COMPLAINTS. IVF ARE INFUSING ORDERED WITHOUT DIFFICULTY. NAD NOTED. WILL CONTINUE TO MONITOR.
[2023-06-02 17:25] VITALS: BP 101/60; PULSE 78; RESP 18; O2SAT 98
[2023-06-02 17:26] LABS: Thyroid Stimulating Hormone 1.24 uIU/mL (0.36-3.74)
--- NOTE | 2023-06-02 17:43 | PC.NURSE ---
PT A&OX4, AMBULATORY WITH STEADY GAIT
== END 2023-06-02 17:40 | disposition home or self-care (01) ==
PROVIDERS: Emergency Provider Preventive Medicine Aerospace Medicine; PCP Family Medicine
DX: J06.9 Acute upper respiratory infection, unspecified (principal); R53.83 Other fatigue; Z79.899 Other long term (current) drug therapy; Z79.891 Long term (current) use of opiate analgesic; Z20.822 Contact with and (suspected) exposure to COVID-19
CPT/HCPCS: 36415; 80053; 84443; 85025; 87636; 96360; 99283; J7030

== ENCOUNTER 2023-06-08 11:24 | Outpatient (CLI) | payer OTHER, SELFPAY ==
--- NOTE | ~2023-06-08 | XR_ITS ---
EXAMINATION: XR chest 2V 06/08/2023 12:35 INDICATION: Fatigue. Lower extremity swelling. PROCEDURE: 2 view chest COMPARISON: Comparison to multiple prior studies sequentially, with oldest reviewed study dated 11/07. FINDINGS: The lungs are clear. The cardiomediastinal silhouette is within normal limits. There are no pleural effusions. There is no pneumothorax suspected. IMPRESSION: 1: NO ACUTE CARDIOPULMONARY DISEASE. Reviewed, dictated and finalized at location B. EAR CONTROL ROOM OPERATOR
--- NOTE | ~2023-06-08 | US_ITS ---
EXAMINATION:US venous doppler LE BI INDICATION:Elevated d-dimer. Leg edema. TECHNIQUE: Multiple grayscale, color flow and Doppler images of the right and left lower extremity de ep venous systems were obtained and reviewed. COMPARISON:No prior studies for comparison. FINDINGS: The common femoral, superficial femoral and popliteal veins demonstrate normal respiratory variation, augmentation and compressibility. Color flow is also seen within the posterior tibial, pe roneal, greater saphenous and profunda veins. IMPRESSION: 1: No lower extremity deep venous thrombosis. Reviewed, dictated and finalized at location B. TER CHIEF DESIGN
== END 2023-06-08 11:25 | disposition home or self-care (01) ==
PROVIDERS: PCP Family Medicine; Visit Provider Family Medicine
DX: R79.1 Abnormal coagulation profile (principal); R06.00 Dyspnea, unspecified
CPT/HCPCS: 71046; 93970

== ENCOUNTER 2024-03-03 11:52 | Emergency (ER) | payer OTHER, SELFPAY ==
[2024-03-03 12:03] VITALS: BP 124/73; PULSE 73; RESP 16; TEMP 36.1; O2SAT 100
--- NOTE | 2024-03-03 12:28 | ED.URI ---
HPI - URI/Sore Throat General Chief Complaint: Upper Respiratory Infection Stated Complaint: Sinus Source: patient and RN notes reviewed Mode of arrival: ambulatory Limitations: no limitations History of Present Illness HPI Narrative: 48-year-old female presented for complaint of headache, body aches, sinus pressure/congestion, cough, fever/chills. onset today. Denies sob, wheezing, n/v/d. States her family tested positive for COVID yesterday. She has taken ibuprofen and flu medication. MD elicited complaint: cough Related Data Home Medications Medication Instructions Recorded Confirmed fentanyl 50 mcg/hr transdermal 1 patch transdermal Q72H 05/29/19 06/02/23 patch gabapentin 300 mg capsule 600 mg PO TID 08/04/19 06/02/23 carisoprodol 250 mg tablet 500 mg PO TID 02/07/21 06/02/23 bupropion HCl 300 mg 24 hr tablet, 300 mg PO DAILY 02/21/21 06/02/23 extended release buspirone 5 mg tablet 5 mg PO DAILY 12/15/22 06/02/23 hydrocodone 10 mg-acetaminophen 1 tablet PO TID PRN Pain (Scale 12/15/22 06/02/23 325 mg tablet Score 7-10) aripiprazole 10 mg tablet 10 mg PO DAILY 06/02/23 06/02/23 conjugated estrogens 0.9 mg tablet 0.9 mg PO DAILY 06/02/23 06/02/23 (Premarin) Allergies Allergy/AdvReac Type Severity Reaction Status Date / Time No Known Allergies Allergy Mild Verified 06/02/23 16:11 Review of Systems Review of Systems: CONSTITUTIONAL: Endorses malaise, chills, sweats, fever EYES: Denies visual changes, redness, or discharge ENT: Reports rhinorrhea, congestion, sinus pain, otalgia, sore throat CARDIOVASCULAR: Denies chest pain, palpitations, edema RESPIRATORY: Reports cough, post nasal drainage. Denies dyspnea GASTROINTESTINAL: Denies abdominal pain, nausea, vomiting, diarrhea SKIN: Denies rash or itching MUSCULOSKELETAL: Endorses myalgia PMFSH Past Medical History Medical History Anxiety Arthritis Blood in stool Chronic headaches Chronic low back pain Depression Neuropathy Osteoporosis Surgical History Surgical History History of cholecystectomy History of hysterectomy History of tubal ligation Family History Family History Other Arthritis Asthma Cancer of kidney Heart disease Hypertension Kidney disorder Liver cancer Social History Social History Smoking status: Never smoker Alcohol intake: never Substance use: never Living arrangements: with family Occupation/Education: occupation Gender identity (if verbalized by the patient): Female Spiritual care concerns: No Exam Narrative: GENERAL: mildly Ill-appearing, nontoxic EYES: PERRLA, conjunctivae clear ENT: Mucous membranes moist. TMs pearly gardiner with dull light reflex bilaterally; no tragal tenderness. NECK: Supple. No lymphadenopathy CHEST: Clear to auscultation, breath sounds equal. No wheezing, rhonchi, rales, or stridor. No respiratory distress, speaks in full sentences. HEART: Regular rate and rhythm. No murmur heard. SKIN: Warm, dry, no rash. NEURO: Alert and oriented x3. PSYCH: Normal mood and affect Course Course Emergency Course: Patient is aware of diagnosis, understands and agrees to treatment plan. Anticipatory guidance given. Patient agrees to follow-up as directed and is aware of reasons to seek care at the emergency department. Portions of this record may have been created with voice recognition software Level of Care: Express Care Visit Vital Signs Vital signs: Vital Signs Temperature 97.0 F L 03/03/24 12:03 Pulse Rate 73 03/03/24 12:03 Respiratory Rate 16 03/03/24 12:03 Blood Pressure 124/73 03/03/24 12:03 Pulse Oximetry 100 03/03/24 12:03 Oxygen Delivery Room Air 03/03/24 12:03 Temperature 97.0 F L 03/03/24 12:03 P
[2024-03-03 12:36] LABS: EDINFLUASCREEN Negative; EDINFLUBSCREEN Negative
== END 2024-03-03 13:10 | disposition home or self-care (01) ==
PROVIDERS: Emergency Provider Nurse Practitioner Family; PCP Family Medicine
DX: U07.1 COVID-19 (principal); M19.90 Unspecified osteoarthritis, unspecified site; M81.0 Age-related osteoporosis without current pathological fracture; G62.9 Polyneuropathy, unspecified; F41.9 Anxiety disorder, unspecified; F32.A Depression, unspecified
CPT/HCPCS: 87426; 87804; 99213; G0463